=== PATIENT | female | born 1970 | race Caucasian/White ===

== ENCOUNTER 2022-05-27 11:52 | Outpatient (CLI) | payer BC, SELFPAY ==
--- NOTE | 2022-05-27 12:41 | ECG_ITS ---
Measurements Intervals [place] Rate: 57 P: 21 NM: 184 QRS: 1 QRSD: 97 T: 11 QT: 406 QTc: 398 Interpretive Statements SINUS BRADYCARDIA POOR R-WAVE PROGRESSION OTHERWISE NORMAL ECG COMPARED TO ECG 08/13/2018 14:08:18 NO SIGNIFICANT CHANGES Electronically Signed On 05-27-2022 15:32:18 [employer]ER by Tevin Vee M.D.
[2022-05-27 13:00] LABS: Basophils Absolute Auto 0.1 K/mm3 (0.0-0.1); Basophils Percent Auto 0.8 % (0.2-1.2); Eosinophils Absolute Auto 0.4 K/mm3 (0-0.3); Eosinophils Percent Auto 4.8 % (0-4.4); Hematocrit 41.5 % (37.0-47.0); Hemoglobin 13.9 g/dL (12.0-15.0); Immature Granulocyte Absolute 0.02 K/mm3 (0.00-0.031); Immature Granulocyte Percent A 0.3 % (0-0.5); Lymphocytes Absolute Auto 3.02 K/mm3 (0.9-3.2); Lymphocytes Percent Auto 38.1 % (18.3-44.2); Mean Corpuscular HGB Conc 33.5 g/dl (32-36); Mean Corpuscular Hemoglobin 30.8 pg (26-34); Mean Platelet Volume 9.7 fl (7.4-10.4); Monocytes Absolute Auto 0.6 K/mm3 (0.1-0.6); Monocytes Percent Auto 7.8 % (2.6-8.5); Neutrophils Absolute Auto 3.8 K/mm3 (1.3-6.7); Neutrophils Percent Auto 48.2 % (45.5-73.1); Platelet Count Result 316 k/mm3 (150-375); Red Blood Count 4.51 M/mm3 (4.2-5.4); Red Cell Distribution Width 12.5 % (11.5-14.5); White Blood Count 7.9 K/mm3 (4.5-10.0)
[2022-05-27 13:08] LABS: Prothrombin Time 12.9 Seconds (11.1-14.7)
[2022-05-27 13:10] LABS: Partial Thromboplastin Time 30.5 SECONDS (22.3-36.8)
[2022-05-27 13:16] LABS: Alanine Aminotransferase 30 U/L (6-35); Albumin Level 4.7 g/dL (3.5-5.1); Alkaline Phosphatase 58 U/L (38-126); Anion Gap 4 mmol/L (8-16); Aspartate Amino Transferase 32 U/L (14-36); Bilirubin,Total 0.6 mg/dL (0.2-1.3); Blood Urea Nitrogen 12 mg/dL (7-17); Calcium 9.2 mg/dL (8.4-10.2); Carbon Dioxide 31 mmol/L (22-30); Chloride 99 mmol/L (98-107); Estimated Glomerular Filt Rate > 60; Glucose 83 mg/dL (65-110); Potassium 3.5 mmol/L (3.4-5.0); Sodium 134 mmol/L (137-145)
== END 2022-05-27 11:53 | disposition home or self-care (01) ==
LOC: ANHSURGERY 12:01
PROVIDERS: PCP Nurse Practitioner Family; Visit Provider Urology
DX: N81.4 Uterovaginal prolapse, unspecified (principal); I10 Essential (primary) hypertension; Z01.818 Encounter for other preprocedural examination; R00.1 Bradycardia, unspecified
CPT/HCPCS: 36415; 80053; 85025; 85610; 85730; 86850; 86900; 86901; 93005

== ENCOUNTER 2022-06-06 01:47 | Day surgery (SDC) | payer BC, SELFPAY ==
[2022-05-27 12:05] VITALS: BMI 38.3
--- NOTE | 2022-05-27 12:25 | PC.NURSE ---
Report to the Outpatient Waiting Room, entrance under the green pavilion located off [facility], at time ___0600____ on date ___06/06/22____. Planned Procedure Time: __729 . Time changes happen often and if your time is changed the preop area will call you the afternoon before. - You and your visitor will be asked to self-screen and do not enter if you have any COVID symptoms. - Only one visitor is requested with a max of two and NO children visitors are allowed at this time. - The patient visitor may be requested to leave or wait in car when not with patient due to distancing restrictions. - A mask is optional within the hospital at this time. Patients may have clear liquids (water, carbonated beverages, clear teas, apple juice) until 3 hours prior to surgery with a maximum of 20 ounces. - No food from midnight until time of surgery - Infants may have breast milk until 4 hours before surgery, formula 6 hours prior to surgery. - Children will be allowed to drink immediately following surgery. If applicable, please bring a bottle or sippy cup to assist with drinking. Juice, water, soda, and popsicles are readily available. For infants on formula, please bring formula the day of surgery. Pacifiers are allowed. Take the following medications with a SIP of water the morning of surgery: __LEVOTHYROXINE DO NOT STOP ANY OF YOUR OTHER PRESCRIPTION MEDICATIONS PRIOR TO SURGERY ?EXCEPT THE FOLLOWING Medications to discontinue per physician ____TUMS 3 DAYS PRE OP .LAST DOSE 06/02/22 Please no make-up, nail yi, hairspray, perfume, deodorant, or body powder the day of surgery. No jewelry (including any body piercings) or valuables the day of surgery, leave them at home. Please take a shower or bath the night before, or the morning of, surgery with an antibacterial soap. Wear comfortable, loose fitting clothing. Children are encouraged to wear pajamas. - Jewelry must be removed prior to entering the operating room. Rings and piercings that are not removed may be cut off. - The hospital will not accept responsibility for valuables. - Please leave all valuables, including medications, at home the day of surgery. If you are going home after surgery, a licensed customer service driver must drive you home. - NO public transportation without another adult if you receive anesthesia. - We recommend that an adult stay with you for 24 hours following discharge. - We also recommend that you do not drive, make important decision, drink alcoholic beverages, or take any drugs that were not prescribed by your health care provider for at least 24 hours after your discharge time. Follow any additional instructions given to you from your surgeon. If you or anyone in your household have experienced Covid symptoms in the past week, please notify your surgeon or the nurse liaison at the phone number below for possible testing. VERBAL AND WRITTEN instructions given to __PATIENT and asked if any additional questions and then verbalized understanding. Patient advised to call surgeon office or pre surgery nurse liaison [phone] if any additional questions.
[2022-05-27 12:38] VITALS: BP 166/87; PULSE 60; RESP 18; TEMP 37.2; O2SAT 98
--- NOTE | 2022-06-01 07:57 | PM.IMHP ---
H&P: HPI History of Present Illness Date/Time: 06/01/22 07:57 Chief Complaint: uterine prolapse Narrative: is a 51-year-old female with known uterine prolapse. She has had normal Pap and she plans supracervical hysterectomy bilateral salpingectomy with sacral colpopexy robotically by Dr. bosch. Risks and benefits reviewed including but exclusive of , aspiration pneumonia, bleeding, transfusion, perforation injury to bowel, bladder, ureters, or other internal organs with need for open laparotomy. She received the ACOG handout entitled hysterectomy as well as the de Theodore handout she had all questions answered and asked to proceed PMFSH Social History Social History Smoking status: Never smoker Alcohol intake: current Drinks per week: 1 Living arrangements: with family Spiritual care concerns: No Meds Home Medications and Allergies Home Medications Medication Instructions Recorded Confirmed Type calcium carbonate 200 mg calcium 200 mg PO PRN PRN Heartburn 05/27/22 05/27/22 History (500 mg) chewable tablet (Tums) levothyroxine 75 mcg tablet 75 mcg PO DAILY 05/27/22 05/27/22 History lisinopril 20 mg tablet 20 mg PO DAILY 05/27/22 05/27/22 History loratadine 10 mg tablet (Claritin) 10 mg PO HS 05/27/22 05/27/22 History Allergies Allergy/AdvReac Type Severity Reaction Status Date / Time hydrocodone [From Vicodin] AdvReac Itching Verified 05/27/22 12:07 Exam Const: General: cooperative, healthy appearing and comfortable Nutritional Appearance: average body habitus Orientation/consciousness: oriented to person, oriented to place and oriented to time HENMT: Head: normal to inspection Resp: Effort & Inspection: normal respiratory effort Cardio: Rate: regular rate Rhythm: regular rhythm Heart sounds: S1 normal heart sound present and S2 normal heart sound present GI: Inspection: normal to inspection : External Female Exam: normal external appearance Speculum Exam - Vagina: normal appearance of the vagina ( cystocele is noted) Speculum Exam - Cervix: normal appearance of the cervix Bimanual exam- vagina & uterus: uterine size normal ( second-degree prolapse present) Bimanual Exam- Adnexa, other: normal adnexae Assessment and Plan Assessment and plan (1) Uterine prolapse: Code(s): N81.4 - Uterovaginal prolapse, unspecified Status: Acute Plan robotic supracervical hysterectomy bilateral salpingectomy
--- NOTE | 2022-06-03 09:16 | PM.IMHP ---
H&P: HPI History of Present Illness Date/Time: 06/03/22 09:16 Chief Complaint: Stress incontinence, pelvic organ prolapse Narrative: 51-year-old with cystocele, uterine prolapse, stress incontinence. She desires surgical correction Review of Systems Review of Systems: All systems reviewed & are unremarkable except as noted in HPI and below [facility] Social History Social History Smoking status: Never smoker Alcohol intake: current Drinks per week: 1 Living arrangements: with family Spiritual care concerns: No Meds Home Medications and Allergies Home Medications Medication Instructions Recorded Confirmed Type calcium carbonate 200 mg calcium 200 mg PO PRN PRN Heartburn 05/27/22 05/27/22 History (500 mg) chewable tablet (Tums) levothyroxine 75 mcg tablet 75 mcg PO DAILY 05/27/22 05/27/22 History lisinopril 20 mg tablet 20 mg PO DAILY 05/27/22 05/27/22 History loratadine 10 mg tablet (Claritin) 10 mg PO HS 05/27/22 05/27/22 History Allergies Allergy/AdvReac Type Severity Reaction Status Date / Time hydrocodone [From Vicodin] AdvReac Itching Verified 05/27/22 12:07 Exam Narrative: no acute distress normal breathing alert orient x3 urethral mobility new apex +1 Assessment and Plan Assessment and plan (1) Uterine prolapse: Code(s): N81.4 - Uterovaginal prolapse, unspecified Status: Acute (2) JAYSON (stress urinary incontinence, female): Code(s): N39.3 - Stress incontinence (female) (male) Status: Acute Plan plan for robotic colpopexy as well as urethral sling. Risks bleeding, infection, damage surrounding organs, damage to the urinary tract, vaginal mesh extrusion, urinary tract mesh erosion, obstructive voiding requiring secondary procedure, hip and leg pain, dyspareunia, postoperative voiding dysfunction including incontinence and retention, need for ancillary procedures she agrees to proceed
[2022-06-06] VITALS (13 sets, daily range): BP systolic 110–164; BP diastolic 67–85; PULSE 58–99; RESP 10–20; TEMP 36.8–36.9; O2SAT 95–100
[2022-06-06] MEDS: ACETAMINOPHEN 500 MG TABLET 1000 MG PO (06:38)
[2022-06-06] MEDS: KETOROLAC 15 MG/ML VIAL (*BKC) IV PUSH (06:52)
--- NOTE | 2022-06-06 07:05 | WPDHPUPDATE1 ---
History and Physical Update Update Date/Time: 06/06/22 07:05 History and Physical has been reviewed, including an updated exam of the patient. There are NO changes in the patient's condition. Risks, benefits, and alternatives have been discussed and questions answered. Patient agrees to proceed with procedure.
--- NOTE | 2022-06-06 07:14 | WPDHPUPDATE1 ---
History and Physical Update Update Date/Time: 06/06/22 07:14 History and Physical has been reviewed, including an updated exam of the patient. There are NO changes in the patient's condition. Risks, benefits, and alternatives have been discussed and questions answered. Patient agrees to proceed with procedure.
[2022-06-06] MEDS: LACTATED RINGERS 1,000 ML 30 ML IV CONT ×2 (07:32→10:39)
[2022-06-06] MEDS: SCOPOLAMINE 1.5 MG PATCH TRANSDERM (07:32)
[2022-06-06] MEDS: ceFAZolin 2 GM/D5W 50 ML 2 GM/50 ML BAG IVPB (07:39)
[2022-06-06] MEDS: metroNIDAZOLE 500 MG/ISO 100ML 500 MG/100 ML BAG 100 MG IVPB ×2 (07:57→17:00)
[2022-06-06] MEDS: BUPIVACAINE/EPINEPHRINE 0.5% 10 ML VIAL INFILTRATE (08:20)
--- NOTE | 2022-06-06 08:53 | P.OP_ITS ---
Procedure Note - Detailed Date of Procedure 06/06/22 Pre-op Diagnosis uterine prolapse,stress incont Post-op Diagnosis Same Procedure Performed Robotic supracervical hysterectomy and bilateral salpingectomy Surgeon Alec Vance MD Anesthesia General Indications this 42 female who is admitted for robotic supracervical hysterectomy and bilateral salpingectomy as well as robotic sacral colpopexy and sling with Dr. Jacinto. She has uterine prolapse and enlarged irregular uterus. Findings Markedly enlarged uterus with 2nd to 3rd degree prolapse. Normal-appearing tubes and ovaries Description of Procedure patient was prepped draped in the normal sterile fashion placed in dorsal lithotomy position. Under excellent general trach anesthesia weighted speculum placed in posterior fornix vagina. Anterior lip of the cervix grasped with a single-tooth tenaculum. The Cheema's cannula was inserted the cervix attached to the single-tooth. This would be used later for uterine manipulation. A 16 Micronesian catheter was placed in the bladder and the bladder drained of clear urine. The weighted speculum was removed. Dr. Rod process a seated to dock the robot. Please see his operative report for full details. Once this had undertaken I undertook the console. The left round ligament was grasped, burned, cut. Anteriorly bladder flap was formed sharply dissecting the peritoneum reflecting the bladder caudally to the opposite ligament was, burned next the left fallopian tube was skeletonized clamping burning cutting and it from the ovary and left attached to the uterine attachment at its origin. In like fashion the right fallopian tube was skeletonized cut resected away from the ovarian complex left attached to the uterine origin. Next utero-ovarian ligament on left was clamped, burned this conserve left conserving the right ovary, the and utero-ovarian ligament was clamped, burned, brought the level previous round cardinal broad ligaments on left were serially skeletonized clamping burning cutting until the uterine vessels could be seen the left. These were large and tortuous and individually clamped, burned,. In like fashion cardinal broad ligaments on the right were serially skeletonized clamping burning cutting and hugging the cervix and uterus until the uterine vessels could be seen on the right. These were individually clamped, burned, cut. A supracervical incision was made then and the cervix was left as stump. The uterus was cut into 3 pieces and placed in 3 Endo-Catch bags. Blood loss to this point in the surgery was [id number]. All sponge, needle, instrument counts were correct. Dr. thao took over from there patient was in stable condition with no immediate complications and sponge needle counts correct at that point. Estimated Blood Loss 25 Drains No Packing No Pathology Yes Complications No immediate complications Condition Stable Disposition No change
--- NOTE | 2022-06-06 10:39 | W.PM.PROC2 ---
Procedure Note - Detailed Date of Procedure 06/06/22 Pre-op Diagnosis uterine prolapse,stress incontinence Post-op Diagnosis Same Procedure Performed Robotic assisted laparoscopic sacral colpopexy Urethral sling Cystoscopy Surgeon Maximo Rod MD Anesthesia General Indications a woman with uterine prolapse as well as stress incontinence. She desires surgical correction. She is here for the above. She understands risks of bleeding, infection, diskitis, damage to surrounding organs, bowel injury, bowel obstruction, mesh related complications including exposure and extrusion, postoperative voiding dysfunction including incontinence and retention, need for ancillary procedures, dyspareunia, recurrence of prolapse, and other perioperative intraoperative postoperative complications. She agrees to proceed. Findings See below Description of Procedure She was correctly identified. Informed consent obtained. She from the operating room. She was given general anesthesia. She was given appropriate perioperative antibiotics. She was placed a low lithotomy position. Pressure points were padded. A time-out performed. I marked out the skin 3 fingerbreadths cephalad to the umbilicus. I anesthetized the skin. I incised the skin. I dissected down to the fascia. I grasped the fascia with Maria De Jesus clamps. I entered the fascia sharply in a Garcia type technique. I placed sutures for later fascial closure. I placed a midline trocar. I examined the abdomen. There is no sign of any injury. Under direct vision I placed 2 additional trocars in the right upper quadrant and 2 additional trocars the left upper quadrant. She was placed in steep Trendelenburg. The robot was docked. Her physician internist completed their portion of the procedure. Please see that operative report for details. I then sat at the console. The Sizer in the vagina created plane on the anterior and posterior vaginal wall. I took great care not to injure the vagina, bladder, or rectum. I introduced the mesh into the abdomen. I sewed the anterior leaflet of mesh on the anterior vaginal wall. I sewed the posterior leaflet of mesh on the posterior vaginal wall. This was done with several sutures of 2 0 Milano-Nishant. I reflected the colon laterally. I opened the posterior peritoneum over the sacral promontory. I carried this into the cul-de-sac. I freed up the edges for later retroperitonealization. I located the anterior longitudinal ligament the sacrum. I cleaned off all fatty tissues. I then tensioned my mesh appropriately. I did a vaginal exam the bedside. I assured prolapse reduction without undue tension. I then sewed the proximal leaflet of mesh onto the anterior longitudinal ligament of the sacrum with several sutures of 2 0 Milano-Nishant. I then used a 2 0 Monocryl to completely and meticulously retroperitonealized all mesh. I allowed the colon to go back to its normal anatomic location. There is no sign of any impingement. The specimen was then removed. All ports removed. Fascia was tied down. Skin was closed with Monocryl and surgical glue. She was repositioned and prepped for urethral sling. I marked out the inner thigh incisions. I anesthetized the skin and made the incisions. I then anesthetized the anterior vaginal wall at the mid urethra. I made a 1 cm incision. I dissected out laterally taking great care not to injure the refilled vaginal wall. I passed the helical trocars. I did this 1st on the left and then on the right. This was done from the thigh incision towards the vaginal incision. Sling was connected to the trocars and brought out the thigh incision. I tensioned the sling appropriately. I cut and the plastic sheaths. I closed the incision with 2 0 Vicryl. I then performed cystoscopy. There was no tumors or surgical artifact. Both ureters were seen to excrete clear yellow urine. There is no surgical artifact in the bladder or urethra. I cut the excess
[2022-06-06] MEDS: fentaNYL CITRATE INJ (*CRX) 100 MCG/2 ML VIAL 25 MCG IV PUSH ×4 (11:45→12:24)
[2022-06-06] MEDS: ONDANSETRON INJ 4 MG/2 ML VIAL IV PUSH ×3 (12:55→23:40)
[2022-06-06] MEDS: DEXTROSE 5%/0.45% SOD CHL 1,000 ML 125 ML (12:55)
[2022-06-06] MEDS: KETOROLAC 30 MG/ML VIAL (*BKC) IV PUSH ×2 (13:10→20:10)
[2022-06-06] MEDS: SIMETHICONE 80 MG TAB.CHEW PO ×2 (21:10→23:40)
[2022-06-06] MEDS: KCL 20 MEQ/D5/0.45% SOD CHL 1,000 ML 100 ML IV CONT (21:10)
[2022-06-06] MEDS: traMADol HCL (*CRX) 50 MG TABLET PO (23:40)
[2022-06-07] MEDS: metroNIDAZOLE 500 MG/ISO 100ML 500 MG/100 ML BAG 100 MG IVPB (01:30)
[2022-06-07 05:00] VITALS: BP 121/64; PULSE 63; RESP 18; TEMP 36.9; O2SAT 100
[2022-06-07] MEDS: SIMETHICONE 80 MG TAB.CHEW PO ×2 (05:00→08:51)
[2022-06-07] MEDS: traMADol HCL (*CRX) 50 MG TABLET PO ×2 (05:00→10:49)
[2022-06-07] MEDS: LEVOTHYROXINE SODIUM 75 MCG TABLET PO (07:00)
[2022-06-07 07:30] VITALS: BP 125/69; PULSE 65; RESP 16; TEMP 37.2; O2SAT 99
--- NOTE | 2022-06-07 07:45 | PM.DS ---
DS: Admitting Diagnosis Discharge Date 06/08/2022 Admitting Diagnosis uterine prolapse/ cystocele/stress urinary incontinence DS: Discharge Diagnosis Discharge Diagnosis (1) JAYSON (stress urinary incontinence, female): Code(s): N39.3 - Stress incontinence (female) (male) Status: Acute (2) Uterine prolapse: Code(s): N81.4 - Uterovaginal prolapse, unspecified Status: Acute DS: Summary Hospital Course Reason for hospitalization: patient was admitted for definitive therapy for uterine prolapse and stress urinary incontinence Hospital Course: patient underwent robotic total vaginal hysterectomy bilateral salpingectomy as well as cystocele repair and sling. Her hospital course unremarkable. For 24hours stay she remained afebrile. She was up, voiding without difficulty, eating regular diet, ambulating, and general thought complaints. Time Spent with Patient Time attestation: Total time spent providing and/or coordinating discharge services: Exam Const: General: cooperative, healthy appearing, comfortable and overweight Orientation/consciousness: oriented to person, oriented to place and oriented to time HENMT: Head: normal to inspection Resp: Effort & Inspection: normal respiratory effort Cardio: Rate: regular rate Rhythm: regular rhythm Heart sounds: S1 normal heart sound present and S2 normal heart sound present GI: Inspection: normal to inspection and incision ( Wounds are clean dry and intact) DS: Data Data Completed and Pending Pending studies at discharge: Pending at discharge 06/06/22 08:21 Surgical [PTH] Routine Discharge Plan Discharge Patient Disposition: Home, Self-Care Discharge Instructions: No lifting >20lb, exercise for 6 weeks No tub bath or pool for 2 weeks No intercourse 6 weeks Stand Alone Forms: General Discharge Instructions Follow-up/Referrals: Maximo Rod MD [Physician] - (6 weeks) Alec Saucedo MD [Physician] - Discharge Medications: New tramadol 50 mg tablet 50 mg PO Q6H PRN (Reason: pain) Qty: 20 0RF docusate sodium [Colace] 100 mg capsule 100 mg PO BID Qty: 60 0RF Continued lisinopril 20 mg tablet 20 mg PO DAILY levothyroxine 75 mcg tablet 75 mcg PO DAILY loratadine [Claritin] 10 mg Tablet 10 mg PO HS calcium carbonate [Tums] 200 mg calcium (500 mg) Tablet,Chewable 200 mg PO PRN PRN (Reason: Heartburn)
--- NOTE | 2022-06-07 07:47 | PM.GYNPNOP ---
FOLDER MACHINE OPERATOR - A/P Postoperative Procedures: Procedures Operation Date: 06/06/22 07:30 Actual Procedure Side Surgeon p Robotic Sacrocolpopexy, Urethral Sling Maximo Rod MD s Robotic Assisted Supracervical Hysterectomy with Bilateral Salpingectomy Bilateral Alec Vance MD Postoperative day: 1 Postoperative status: doing well Postoperative plan: routine post-op care Time Spent With Patient Time: Total time spent is greater than 50% in coordination of care (as documented) at patient's floor/unit and/or counseling patient: Time with patient: less than 15 minutes FOLDER MACHINE OPERATOR- PN:Subj Post-Op Subjective Date/time seen: 06/07/22 07:47 Subjective: patient reports feeling better and pain is well controlled Exam Const: General: cooperative, healthy appearing and comfortable Nutritional Appearance: overweight Orientation/consciousness: oriented to person, oriented to place and oriented to time HENMT: Head: normal to inspection Resp: Effort & Inspection: normal respiratory effort Cardio: Rate: regular rate Rhythm: regular rhythm Heart sounds: S1 normal heart sound present and S2 normal heart sound present GI: Inspection: normal to inspection and incision ( wounds clean dry and intact) FOLDER MACHINE OPERATOR - PN: Obj Data Vital Signs Vital Signs: Vital Signs - 24 hr 06/06/22 10:45 06/06/22 11:00 06/06/22 11:15 Temperature 98.4 F Pulse Rate 84 72 58 L Respiratory Rate 14 15 13 Blood Pressure 125/70 129/78 115/68 Pulse Oximetry 100 100 100 Oxygen Delivery Simple Face Mask Simple Face Mask Simple Face Mask Oxygen Flow Rate 8 8 8 06/06/22 11:35 06/06/22 11:50 06/06/22 12:05 Temperature Pulse Rate 60 66 67 Respiratory Rate 12 10 L 13 Blood Pressure 118/70 110/71 115/67 Pulse Oximetry 100 95 97 Oxygen Delivery Simple Face Mask Room Air Room Air Oxygen Flow Rate 8 06/06/22 12:20 06/06/22 12:35 06/06/22 12:50 Temperature 98.2 F Pulse Rate 75 82 85 Respiratory Rate 13 14 16 Blood Pressure 110/67 117/71 143/70 H Pulse Oximetry 96 98 96 Oxygen Delivery Room Air Room Air Oxygen Flow Rate 06/06/22 12:50 06/06/22 17:00 06/06/22 17:00 Temperature 98.3 F Pulse Rate 85 99 85 Respiratory Rate 16 20 16 Blood Pressure 158/79 H Pulse Oximetry 96 98 96 Oxygen Delivery Room Air Room Air Oxygen Flow Rate 06/06/22 18:40 06/06/22 18:40 06/06/22 23:40 Temperature 98.3 F Pulse Rate 88 Respiratory Rate 18 Blood Pressure 121/72 Pulse Oximetry 99 Oxygen Delivery Room Air Room Air Oxygen Flow Rate 06/06/22 23:40 06/07/22 05:00 06/07/22 05:00 Temperature 98.5 F 98.4 F Pulse Rate 94 63 Respiratory Rate 18 18 Blood Pressure 142/82 H 121/64 Pulse Oximetry 100 100 Oxygen Delivery Room Air Oxygen Flow Rate Intake/Output Intake/Output: Intake & Output 06/04/22 06/05/22 06/06/22 06/07/22 23:59 23:59 23:59 23:59 Intake Total 2580 750 Output Total 750 1000 Balance 1830 -250 Meds/Results Medications: Active Medications Generic Name Dose Route Start Last Admin Trade Name Freq PRN Reason Stop Dose Admin Acetaminophen 650 mg 06/06/22 12:42 Acetaminophen 325 Mg Tablet PO Q4H PRN Mild Pain (1-3) or Fever Cephalexin HCl 500 mg 06/07/22 13:00 Cephalexin 500 Mg Capsule PO QID MARIA DE JESUS Diphenhydramine HCl 25 mg 06/06/22 12:42 Diphenhydramine Hcl Inj 50 Mg/Ml Vial IV PUSH Q6H PRN Itching Docusate Sodium 100 mg 06/06/22 12:42 06/06/22 19:01 Docusate Sodium 100 Mg Capsule PO Not Given DAILY [facility] Enoxaparin Sodium 30 mg 06/07/22 09:00 Enoxaparin 30 Mg/0.3 Ml Syringe SUB-Q DAILY MARIA DE JESUS Potassium Chloride/Dextrose/Sod Cl 1,000 mls @ 100 mls/hr 06/06/22 12:42 06/06/22 21:10 Kcl 20 Meq/D5/0.45% Sod Chl IV CONT 100 mls/hr .Q10H MARIA DE JESUS Administration Cefazolin Sodium 1 gm in 50 mls @ 100 mls/hr 06/06/22 16:00 06/07/22 03:00 Ancef 1 Gm/D5w 50 Ml Pm IVPB 06/07/22 08:29 Infused Q8H MARIA DE JESUS
--- NOTE | 2022-06-07 07:55 | WPDANESPN ---
Anes - Prog Note Post-Op Date/Time: 06/07/22 07:55 Cardiovascular status: normal Respiratory status: normal Airway patency: baseline Mental status: baseline Post-Op hydration status: normal Vital Signs: Last Vital Signs Temp 98.4 F 06/07/22 05:00 Pulse 63 06/07/22 05:00 Resp 18 06/07/22 05:00 BP 121/64 06/07/22 05:00 Pulse Ox 100 06/07/22 05:00 O2 Del Method Room Air 06/07/22 05:00 O2 Flow Rate 8 06/06/22 11:35 Pain Score (VAS): 0/10 I/O: Intake & Output 06/06/22 06/06/22 06/07/22 15:59 23:59 07:59 Intake Total 1830 750 750 Output Total 750 1000 Balance 1830 0 -250 Post-procedural complaints: none Patient Feedback: Patient satisfied with anesthetic care.
[2022-06-07] MEDS: ACETAMINOPHEN 325 MG TABLET 650 MG PO (08:51)
[2022-06-07] MEDS: DOCUSATE SODIUM 100 MG CAPSULE PO (08:51)
[2022-06-07] MEDS: ENOXAPARIN 30 MG/0.3 ML SYRINGE SUB-Q (10:06)
[2022-06-07] MEDS: CEPHALEXIN 500 MG CAPSULE PO (10:49)
== END 2022-06-07 13:13 | disposition home or self-care (01) ==
LOC: ANHSURGERY 07:30 → ANHOB2 12:47
PROVIDERS: Obstetrics & Gynecology; PCP Nurse Practitioner Family; Visit Provider Urology
PROC: (CPT 57425; principal; 2022-06-06 07:30)
PROC: (CPT 58542; 2022-06-06 07:30)
DX: N81.4 Uterovaginal prolapse, unspecified (principal); N39.3 Stress incontinence (female) (male); N80.00 Endometriosis of the uterus, unspecified; D25.1 Intramural leiomyoma of uterus; D25.2 Subserosal leiomyoma of uterus
CPT/HCPCS: 57288; 57425; 58542; S2900 ×2; 88307; 99199; A9270; C1771; C1781; C9290; J0690; J1100; J1170; J1650; J1885; J2250; J2405; J2704; J2710; J3010; J3480; J7030; J7120

== ENCOUNTER 2022-11-23 14:36 | Outpatient (CLI) | payer BC, SELFPAY ==
[2022-11-23 15:14] LABS: Alanine Aminotransferase 25 U/L (6-35); Albumin Level 4.4 g/dL (3.5-5.1); Alkaline Phosphatase 53 U/L (38-126); Amylase 106 U/L (30-110); Aspartate Amino Transferase 30 U/L (14-36); Bilirubin,Total 0.3 mg/dL (0.2-1.3); Lipase 137 U/L (23-300)
== END 2022-11-23 14:37 | disposition home or self-care (01) ==
LOC: ANHSURGERY 14:40
PROVIDERS: PCP Nurse Practitioner Family; Visit Provider Surgery
DX: K81.1 Chronic cholecystitis (principal)
CPT/HCPCS: 36415; 80076; 82150; 83690; 86850; 86900; 86901

== ENCOUNTER 2022-11-30 00:27 | Day surgery (SDC) | payer BC, SELFPAY ==
[2022-11-22 15:47] VITALS: BMI 35.7
--- NOTE | 2022-11-22 16:06 | PC.NURSE ---
Report to the Outpatient Waiting Room, entrance under the green pavilion located off [facility], at time _0630 on date _11/30/22_. Planned Procedure Time: _0830. Time changes happen often and if your time is changed the preop area will call you the afternoon before. - You and your visitor will be asked to self-screen and do not enter if you have any COVID symptoms. - A mask is optional within the hospital at this time. Patients may have clear liquids (water, carbonated beverages, clear teas, apple juice) until 3 hours prior to surgery with a maximum of 20 ounces. - No food from midnight until time of surgery - Infants may have breast milk until 4 hours before surgery, infant formula 6 hours prior to surgery. - Children will be allowed to drink immediately following surgery. If applicable, please bring a bottle or sippy cup to assist with drinking. Juice, water, soda, and popsicles are readily available. For infants on formula, please bring formula the day of surgery. Pacifiers are allowed. Take the following medications with a SIP of water the morning of surgery: _levothyroxine____ DO NOT STOP ANY OF YOUR OTHER PRESCRIPTION MEDICATIONS PRIOR TO SURGERY ?EXCEPT THE FOLLOWING Medications to discontinue per physician Date to take last dose Please no make-up, nail omani, hairspray, perfume, deodorant, or body powder the day of surgery. No jewelry (including any body piercings) or valuables the day of surgery, leave them at home. Please take a shower or bath the night before, or the morning of, surgery with an antibacterial soap(hibiclens). Wear comfortable, loose fitting clothing. Children are encouraged to wear pajamas. - Jewelry must be removed prior to entering the operating room. Rings and piercings that are not removed may be cut off. - The hospital will not accept responsibility for valuables. - Please leave all valuables, including medications, at home the day of surgery. If you are going home after surgery, a licensed dray driver must drive you home. - NO public transportation without another adult if you receive anesthesia. - We recommend that an adult stay with you for 24 hours following discharge. - We also recommend that you do not drive, make important decision, drink alcoholic beverages, or take any drugs that were not prescribed by your health care provider for at least 24 hours after your discharge time. For Pediatric surgeries, we recommend two adults accompany the child home. Follow any additional instructions given to you from your surgeon. If you or anyone in your household have experienced Covid symptoms in the past week, please notify your surgeon or the nurse liaison at the phone number below for possible testing. Telephone instructions given to Shirin Escalanteand asked if any additional questions and then verbalized understanding. Patient advised to call surgeon office or pre surgery nurse liaison [phone] if any additional questions.
[2022-11-30] VITALS (14 sets, daily range): BP systolic 116–160; BP diastolic 73–100; PULSE 51–75; RESP 12–20; TEMP 36.1–36.8; O2SAT 93–100
[2022-11-30] MEDS: ACETAMINOPHEN 500 MG TABLET 1000 MG PO (07:10)
[2022-11-30] MEDS: LACTATED RINGERS 1,000 ML 30 ML IV CONT ×3 (07:15→12:31)
[2022-11-30] MEDS: KETOROLAC 15 MG/ML VIAL (*BKC) IV PUSH (08:16)
--- NOTE | 2022-11-30 08:25 | WPDHPUPDATE1 ---
History and Physical Update Update Date/Time: 11/30/22 08:25 History and Physical has been reviewed, including an updated exam of the patient. There are NO changes in the patient's condition. Risks, benefits, and alternatives have been discussed and questions answered. Patient agrees to proceed with procedure.
--- NOTE | 2022-11-30 08:34 | P.PNAN_ITS ---
Anes - Initial Pre Proc Eval Procedure: Operation Date: 11/30/22 08:30 Proposed Procedures p Laparoscopic Cholecystectomy - Jhonathan Piedra MD Date/Time: 11/30/22 08:34 Surgeon: Jhonathan Piedra MD Pre Op Diagnosis: Chr Cholecystitis Patient Data Age: 52 Gender: F Height: 1.52 m Weight: 86.8 kg Last Vital Signs Temp 36.8 C 11/30/22 07:27 Pulse 75 11/30/22 07:27 Resp 16 11/30/22 07:27 BP 143/93 H 11/30/22 07:27 Pulse Ox 97 11/30/22 07:27 O2 Del Method Room Air 11/30/22 07:27 Allergies Allergy/AdvReac Type Severity Reaction Status Date / Time hydrocodone [From Vicodin] AdvReac Itching Verified 11/03/22 08:37 Home Medications Medication Instructions Recorded Confirmed Type calcium carbonate 200 mg calcium 200 mg PO PRN PRN Heartburn 05/27/22 11/22/22 History (500 mg) chewable tablet (Tums) levothyroxine 75 mcg tablet 75 mcg PO DAILY 05/27/22 11/22/22 History lisinopril 20 mg tablet 20 mg PO DAILY 05/27/22 11/22/22 History loratadine 10 mg tablet (Claritin) 10 mg PO HS 05/27/22 11/22/22 History Patient hx anesthesia problems: none Family hx anesthesia problems: none Results Review: All pre-operative results and documents have been reviewed as part of the pre- operative evaluation. [facility] Past Medical History Medical History Hypertension Thyroid disorder Surgical History Surgical History H/O lateral meniscus repair of right knee 2006 History of appendectomy 1988 History of bladder suspension procedure 06/06/2022 - Robotic assisted laparoscopic sacral colpopexy, Urethral sling, Cystoscopy History of partial hysterectomy 06/06/2022 - Robotic supracervical hysterectomy and bilateral salpingectomy Family History Family History Father Heart disease Other Hypertension Cancer Heart disease Social History Social History Smoking status: Never smoker Alcohol intake: current Drinks per week: 1 Alcohol use details: Social alcohol use Substance use: never Living arrangements: with family Occupation/Education: occupation 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 Informed Consent: The patient's anesthetic plan and its attendant risks and benefits were discussed with the patient/family/POA. Questions were solicited and answers provided to the satisfaction of the patient/family/POA.
[2022-11-30] MEDS: ceFAZolin 2 GM/D5W 50 ML 2 GM/50 ML BAG IVPB (08:36)
[2022-11-30] MEDS: SCOPOLAMINE 1.5 MG PATCH TRANSDERM (08:38)
--- NOTE | 2022-11-30 08:50 | W.PM.PROC2 ---
Procedure Note - Detailed Date of Procedure 11/30/22 Pre-op Diagnosis Chronic cholecystitis, cholelithiasis Post-op Diagnosis Same Procedure Performed Laparoscopic cholecystectomy Surgeon Jhonathan Piedra MD Client Account Assistant Bneita COOK Anesthesia General and Local (0.5% Marcaine with epinephrine) Indications Patient had been having right upper quadrant pain and epigastric pain that would radiate to her back. She had imaging that showed an echogenic nonmobile lesion in the neck of her gallbladder, possibly an adherent gallstone or a polyp. She is felt to have chronic cholecystitis and is taken to surgery now for laparoscopic cholecystectomy. Findings There were adhesions to the gallbladder. There was mild inflammatory change in the gallbladder. No stones were noted. There were changes of fatty liver. There was no biliary ductal dilatation. Description of Procedure Patient was taken to surgery and induced into general anesthesia. The abdomen was prepped and draped. Trocars were placed in usual fashion using EGEN optical trocars and a 5 mm camera. The gallbladder was decompressed with a laparoscopic aspirator. The cholecystotomy was closed with a Vicryl endoloop. Gallbladder was then elevated and adhesions were taken down with mostly sharp dissection. Cautery was used for hemostasis. The gallbladder was retracted further and he eventually all the adhesions to the gallbladder were taken down. Gallbladder was retracted anterosuperiorly. Due to the fatty liver, we were unable to get full retraction of the gallbladder. A 5 mm port was placed in the left mid abdomen. This was used to retract the medial segment of the left lobe of the liver that was wrapping around the gallbladder. Traction was placed on the infundibulum. Dissection was carried out in the cholecystohepatic triangle. Cystic duct and cystic artery were carefully dissected. Patient had a very large right hepatic artery that was traveling into the liver just below the edge of the gallbladder. We carefully dissected the gallbladder off the liver using the additional retractor to expose the edge of the gallbladder. Eventually at least a 3rd of the gallbladder was dissected off the liver and critical view was achieved. I then securely clipped and divided the cystic duct and cystic artery. The gallbladder was retracted further and was carefully dissected free of its remaining attachments to the liver. Once the gallbladder was freed entirely, it was placed in an Endo-Catch bag and retrieved through the 10 11 epigastric trocar site. We then replaced the epigastric trocar reviewed the right upper quadrant. It was irrigated and suctioned a couple of different times. There was no evidence of bleeding or bile leakage. We then evacuated CO2 and removed the trocar sleeves. Skin wounds were closed with subcuticular 4-0 Monocryl skin suture. The wounds were dressed with Exofin surgical adhesive. The patient was awakened and taken to recovery in good condition. Sponge and needle counts were correct x2. Estimated Blood Loss -10 Drains No Packing No Pathology Yes (Gallbladder) Complications No immediate complications Condition Stable Disposition PACU [facility] Billing Surgery - Charge Forward: Surgery Billing (Laparoscopic cholecystectomy)
[2022-11-30] MEDS: BUPIVACAINE/EPINEPHRINE 0.5% 50 ML VIAL 22 ML INFILTRATE (09:11)
[2022-11-30] MEDS: fentaNYL CITRATE INJ (*CRX) 100 MCG/2 ML VIAL 25 MCG IV PUSH ×4 (10:22→11:21)
[2022-11-30] MEDS: ONDANSETRON INJ 4 MG/2 ML VIAL IV PUSH (11:41)
[2022-11-30] MEDS: diphenhydrAMINE HCl INJ 50 MG/ML VIAL 25 MG IV PUSH (11:54)
[2022-11-30] MEDS: oxyCODONE HCL (*CRX) 5 MG TAB IR PO (12:47)
== END 2022-11-30 14:01 | disposition home or self-care (01) ==
PROVIDERS: PCP Nurse Practitioner Family; Visit Provider Surgery
PROC: 0FT44ZZ Resection of Gallbladder, Percutaneous Endoscopic Approach (ICD-10-PCS; CPT 47562; principal; 2022-11-30 08:30)
DX: K80.10 Calculus of gallbladder with chronic cholecystitis without obstruction (principal); D13.5 Benign neoplasm of extrahepatic bile ducts; K76.0 Fatty (change of) liver, not elsewhere classified; I10 Essential (primary) hypertension; E66.9 Obesity, unspecified; Z68.37 Body mass index [BMI] 37.0-37.9, adult
CPT/HCPCS: 47562; 88304; A9270; C1713; J0330; J0690; J1100; J1170; J1200; J1885; J2250; J2405; J2704; J3010; J7030; J7120

== ENCOUNTER 2022-12-05 10:42 | Emergency (ER) | payer BC, SELFPAY ==
--- NOTE | ~2022-12-05 | XR_ITS ---
EXAMINATION: XR chest 2V DATE: 12/05/2022 11:48 INDICATION: Shortness of breath, cough and wheezing 5 days post cholecystectomy TECHNIQUE: PA and lateral views of the chest were obtained. COMPARISON: None FINDINGS: Mild perihilar and infrahilar bronchial wall thickening without focal airspace opacities. No pleural effusion or pneumothorax. The cardiomediastinal silhouette is normal. Cholecystectomy clips in right upper quadrant. IMPRESSION: 1. Mild perihilar and infrahilar bronchial wall thickening which could be seen with bronchitis, react rahel airway disease/asthma or minimal pulmonary edema. Reviewed, dictated and finalized at location A. IMPRESSION: 1. Mild perihilar and infrahilar bronchial wall thickening which could be seen with bronchitis, reactive airway disease/asthma or minimal pulmonary edema.
--- NOTE | ~2022-12-05 | CT_ITS ---
EXAMINATION: CTA chest PE protocol DATE: 12/05/2022 13:14 INDICATION: Shortness of breath, elevated d-dimer. Recent laparoscopic cholecystectomy 4 days ago. TECHNIQUE: Computed tomography angiography (CTA) of the chest was performed with 100 mL Omnipaque-350 intravenous contrast timed to evaluate the pulmonary arteries. Coronal maximum intensity projection 3D-reconstructions were created by the technologist. Automated exposure control and iterative reconst ruction technique were employed. Exam dose: 632.27 mGy-cm total exam DLP. COMPARISON: 12/05/2022 2 view chest FINDINGS: There is diagnostic contrast enhancement of the pulmonary arteries and no evidence of pulmo nary embolism. No thoracic aortic aneurysm or dissection. No hilar or mediastinal mass lesion or lymphadenopathy. No pericardial or pleural effusion. There is a prominent band of discoid atelectasis or scarring in the right lower lobe and mild discoid atelectasis or scarring at the base of the lingula and left lower lobe. Normal morphology of the adrenal glands. Status post cholecystectomy. No suspicious osteolytic or osteoblastic lesions are noted. Degenerative spurring of the thoracic spi ne. IMPRESSION: No evidence of pulmonary embolism Reviewed, dictated and finalized at Location [facility]. Reviewed, dictated and finalized at location B.
[2022-12-05 10:53] VITALS: BP 191/93; PULSE 71; RESP 18; TEMP 36.7; O2SAT 98
[2022-12-05 11:23] VITALS: O2SAT 99
[2022-12-05 11:30] LABS: Basophils Percent Auto 0.6 % (0.2-1.2); Eosinophils Percent Auto 14.5 % (0-4.4); Hematocrit 40.3 % (37.0-47.0); Hemoglobin 13.2 g/dL (12.0-15.0); Immature Granulocyte Absolute 0.04 K/mm3 (0.00-0.031); Immature Granulocyte Percent A 0.6 % (0-0.5); Lymphocytes Absolute Auto 1.69 K/mm3 (0.9-3.2); Lymphocytes Percent Auto 23.7 % (18.3-44.2); Mean Corpuscular HGB Conc 32.8 g/dl (32-36); Mean Corpuscular Hemoglobin 30.7 pg (26-34); Mean Corpuscular Volume 93.7 fl (80-100); Mean Platelet Volume 9.8 fl (7.4-10.4); Monocytes Absolute Auto 0.5 K/mm3 (0.1-0.6); Monocytes Percent Auto 7.2 % (2.6-8.5); Neutrophils Absolute Auto 3.8 K/mm3 (1.3-6.7); Neutrophils Percent Auto 53.4 % (45.5-73.1); Platelet Count Result 279 k/mm3 (150-375); Red Cell Distribution Width 12.9 % (11.5-14.5); White Blood Count 7.1 K/mm3 (4.5-10.0)
[2022-12-05 11:39] LABS: Alanine Aminotransferase 39 U/L (6-35); Albumin Level 4.3 g/dL (3.5-5.1); Alkaline Phosphatase 54 U/L (38-126); Anion Gap 11 mmol/L (8-16); Aspartate Amino Transferase 29 U/L (14-36); Bilirubin,Total 0.5 mg/dL (0.2-1.3); Blood Urea Nitrogen 9 mg/dL (7-17); Carbon Dioxide 26 mmol/L (22-30); Chloride 103 mmol/L (98-107); Estimated CRCL calculation 96 ml/min; Estimated Glomerular Filt Rate > 60; Glucose 86 mg/dL (65-110); Sodium 140 mmol/L (137-145)
--- NOTE | 2022-12-05 12:21 | ED.URI ---
HPI - URI/Sore Throat General Chief Complaint: Upper Respiratory Infection Stated Complaint: upper respiratory symptoms Time Seen by Provider: 12/05/22 11:50 Source: patient Mode of arrival: ambulatory Limitations: no limitations History of Present Illness HPI Narrative: This is a 52 year old female that presents to the ER for shortness of breath. Reports she has had a cough and been wheezing intermittently over the last couple weeks. She recently underwent a cholecystectomy last week with Dr. Piedra. She has had some shortness of breath today. Called her doctor and was prompted to be seen in the ER. Denies fever, chest pain or lower extremity edema. Related Data Home Medications Medication Instructions Recorded Confirmed calcium carbonate 200 mg calcium 200 mg PO PRN PRN Heartburn 05/27/22 11/22/22 (500 mg) chewable tablet (Tums) levothyroxine 75 mcg tablet 75 mcg PO DAILY 05/27/22 11/22/22 lisinopril 20 mg tablet 20 mg PO DAILY 05/27/22 11/22/22 loratadine 10 mg tablet (Claritin) 10 mg PO HS 05/27/22 11/22/22 Allergies Allergy/AdvReac Type Severity Reaction Status Date / Time hydrocodone [From Vicodin] AdvReac Itching Verified 11/03/22 08:37 Review of Systems Review of Systems: CONSTITUTIONAL: Denies fever ENT: Reports congestion CARDIOVASCULAR: Denies chest pain, or edema. RESPIRATORY: Reports cough and dyspnea. GASTROINTESTINAL: Denies abdominal pain, nausea, vomiting All systems reviewed & are unremarkable except as noted in HPI and below PMFSH Past Medical History Medical History Hypertension Thyroid disorder Surgical History Surgical History H/O lateral meniscus repair of right knee 2006 History of appendectomy 1988 History of bladder suspension procedure 06/06/2022 - Robotic assisted laparoscopic sacral colpopexy, Urethral sling, Cystoscopy History of partial hysterectomy 06/06/2022 - Robotic supracervical hysterectomy and bilateral salpingectomy Family History Family History Father Heart disease Other Hypertension Cancer Heart disease Social History Social History Smoking status: Never smoker Alcohol intake: current Drinks per week: 1 Alcohol use details: Social alcohol use Substance use: never Living arrangements: with family Occupation/Education: occupation 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 HEAD: Normocephalic, atraumatic. EYES: EOMI. ENT: Nares clear, no rhinorrhea or epistaxis. Mucous membranes moist. Oropharynx without tonsillar hypertrophy exudate or other lesions. Bilateral TMs pearly de luna non-bulging NECK: Supple. No adenopathy or masses. CHEST: Clear to auscultation. No respiratory distress. No wheezes rales or rhonchi HEART: Regular rate and rhythm. No murmur heard. Normal peripheral pulses. ABDOMEN: Soft, nontender, nondistended, normal active bowel sounds. Incisions are clean, dry and intact. No abnormal drainage. Mild surrounding bruising EXTREMITIES: Normal range of motion. No edema. SKIN: Warm, dry, no rash. NEURO: No focal deficits. Alert and oriented x3. PSYCH: Normal mood and affect Course Course Emergency Course: Patient was updated on work-up and agrees with plan of care Vital Signs Vital signs: Vital Signs Temperature 98.1 F 12/05/22 10:53 Pulse Rate 71 12/05/22 10:53 Respiratory Rate 18 12/05/22 10:53 Blood Pressure 191/93 H 12/05/22 10:53 Pulse Oximetry 98 12/05/22 10:53 Oxygen Delivery Room Air 12/05/22 10:53 Temperature 98.1 F 12/05/22 10:53 Pulse Rate 59 L 12/05/22 13:48 Respiratory Rate 19 12/05/22 13:48 Blood Press
[2022-12-05 13:48] VITALS: BP 172/85; PULSE 59; RESP 19; O2SAT 99
== END 2022-12-05 14:04 | disposition home or self-care (01) ==
PROVIDERS: Emergency Medicine; Emergency Provider Physician Assistant; PCP Nurse Practitioner Family
DX: J40 Bronchitis, not specified as acute or chronic (principal); I10 Essential (primary) hypertension
CPT/HCPCS: 36415; 71046; 71275; 80053; 85025; 85380; 99284; Q9967

== ENCOUNTER 2025-01-28 14:44 | Outpatient (CLI) | payer OTHER, SELFPAY ==
--- NOTE | ~2025-01-28 | MM_ITS ---
EXAMINATION: screening [facility] BI w kareen INDICATION: Asymptomatic, referred for screening mammogram COMPARISON: None available TECHNIQUE: Digital Breast Tomosynthesis CC, MLO views of Both breasts were obtained with computer-aided detection to assist in interpretation of the study. FINDINGS: There are scattered areas of fibroglandular density. There is a circumscribed mass in the superior medial left breast at anterior to middle third. Circumscribed asymmetry seen on the MLO view in the superior at posterior third in the left breast which may represent an intramammary lymph node. Elsewhere, there are no mammographic features of malignancy. IMPRESSION: 1. Left breast Mass and asymmetry. 2. No evidence of malignancy in the Right breast. RECOMMENDATION: Left breast Diagnostic mammogram with true lateral, appropriate spot compression views and an ultrasound if needed. BI-RADS Category 0: Incomplete: Needs additional imaging evaluation. Reviewed, dictated and finalized at location B. IMPRESSION: 1. Left breast Mass and asymmetry. 2. No evidence of malignancy in the Right breast. RECOMMENDATION: Left breast Diagnostic mammogram with true lateral, appropriate spot compressio n views and an ultrasound if needed. BI-RADS Category 0: Incomplete: Needs additional imaging evaluation.
--- OUTSIDE RECORDS SUMMARY | 2025-01-28 18:42 | XMS_ITS | Clinical Summary ---
Author Organization [facility] Address [address] [place] [address] Care Team Providers Care Technical Architect Name Role Phone Unavailable Primary Care Provider Unavailabl e Source Comments [facility],non-owned Affiliates and Associated Physician Practices is amultiple site organization consisting of ambulatory clinics and hospital sitesin [place], [place], [place] and [place]. This disclosure is being madepursuant to the Care Everywhere program and may not contain all information available regarding this patient. Last updated 17.[employer] [facility] Allergies No known active allergies Medications * Be aware that medications may not be up to date on this document. Alwaysverify current medications with the patient. Medication Sig Dispense Quantity Refills Last Filled Start D ate End Date Status LISINOPRIL PO Active Social History Tobacco Use Types Packs/Day Years Used Date Smoking Tobacco: Never Smokeless Tobacco: Never Comments No Sex and Gender Information Value Date Recorded Sex Assigned at Not on file Legal Sex Female 10:24 PM CDT Gender Identity Not on file Sexual Orientation Not on file Last Filed Vital Signs Vital Sign Reading Time Taken Comments Blood Pressure 130/90 12/04/2018 4:27 PM CDT Pulse 78 12/04/2018 4:27 PM CDT Temperature 36.9 C (98.5 F) 11/26/2016 10:19 AM CDT Respiratory Rate 17 12/04/2018 4:27 PM CDT Oxygen Saturation 99% 12/04/2018 4:27 PM CDT Inhaled Oxygen Concentration - - Weight 81.6 kg (180 lb) 12/04/2018 4:27 PM CDT Height 154.9 cm (5' 1) 12/04/2018 4:27 PM CDT Body Mass Index 34.01 12/04/2018 4:27 PM CDT Plan of Treatment Health Maintenance Due Date Last Done Comments COLOGUARD (AGES 45-75) - COL ON CA SCREENING 1972 COLON MONITORING 1972 COLONOSCOPY - COLON CA SCREENING 1972 CT COLONOGRAPHY - COLON CA SCREENING 1972 Colorectal Cancer Screening 1972 FIT - COLON CA SCREENING 1972 FLEX SIG - COLON CA SCREENING 1972 LIPID TESTING 1972 MAMMOGRAM 1972 HIV SCREENING 06/18/1987 HEPATITIS C SCREENING 06/13/1990 DTAP/TDAP/TD VACCINES (1 - Tdap) 06/18/1991 HEPATITIS B VACCINE (1 of 3 - 19+ 3-dose series) 06/18/1991 PAP SMEAR 1993 SCREENING FOR DIABETES 12/04/2018 PNEUMOCOCCAL VACCINE 50+ (1 of 1 - PCV) 2022 ZOSTER VACCINE (1 of 2) 2022 DEPRESSION SCREENING 04/10/2024 COVID-19 VACCINE (1 - 2023-2 5 season) 2024 INFLUENZA VACCINE (#1) 2024 HIB VACCINE Aged Out No longer eligi ble based on patient's age to complete this topic HPV VACCINE Aged Out No longer eligi ble based on patient's age to complete this topic MENINGOCOCCAL (Group B) VACC INE SHARED DECISION-MAKING Aged Out No longer eligibl e based on patient's age to complete this topic MENINGOCOCCAL GROUPS A/C/Y/W VACCINE Aged Out No longer eligible b ased on patient's age to complete this topic Insurance [employer]
--- OUTSIDE RECORDS SUMMARY | 2025-01-28 18:42 | XMS_ITS | Clinical Summary ---
Author Organization [facility] Address [address] [place] [id number] Care Team Providers Care Suction Plate Roller Hand Name Role Phone Mona Vaughn NP Primary Care Provider [phone] Allergies No known active allergies Medications lisinopril, bulk, 100 % powder Take by mouth Active levothyroxine (SYNTHROID) 175 mcg tablet Take 175 mcg by mouth medicine assistant before breakfast Active cetirizine (ZyrTEC) 10 mg chewable tablet Take 10 mg by mouth daily Active Active Problems Problem Noted Date Diagnosed Date Abnormal mammography 08/24/2020 Surgical History Surgery Date Site/Laterality Comments BREAST BIOPSY 09/03/2020 Right Medical History Medical History Date Comments Thyroid disease Family History Medical History Relation Name Comments Lung cancer Maternal Grandmother Relation Name Status Comments Maternal Grandmother Social History Tobacco Use Types Packs/Day Years Used Date Smoking Tobacco: Never Personal Safety Answer Date Recorded Getting School Help Needed Not on file 06/24 Comments Unknown Sex and Gender Information Value Date Recorded Sex Assigned at Not on file Legal Sex Female 9:53 AM CDT Gender Identity Not on file Sexual Orientation Not on file Obstetrics History Last Filed Vital Signs Vital Sign Reading Time Taken Comments Blood Pressure - - Pulse - - Temperature - - Respiratory Rate - - Oxygen Saturation - - Inhaled Oxygen Concentration - - Weight 86.2 kg (190 lb) 08/24/2020 8:24 AM CDT Height 154.9 cm (5' 1) 08/24/2020 8:24 AM CDT Body Mass Index 35.9 08/24/2020 8:24 AM CDT Plan of Treatment Not on file Insurance [employer] Care Teams Suction Plate Roller Hand Relationship Specialty Start Date End Date Mona Vaughn NP PCP - General Nurse Practitioner 08/11/20
--- OUTSIDE RECORDS SUMMARY | 2025-01-28 18:42 | XMS_ITS | Data Portability ---
Author Organization [facility] Address [address] [place] [address] Care Team Providers Care Community Service Technician Name Role Phone CRUZSABINADAHLIA Primary Care Provider Unavailab STALIN Robledo Research Leader Assessment Encounter Date Assessment Date Assessment LastModified by Organization Details LastModified Time 09/07/2023 09/07/2023 Mammogram: August 2022 Pap smear smear: july 2022 cologuard : october 2022. negative. Eye exam: been a few years Dental : every 6 months. Not available 09/07/2023 15:13:22 10/04/2023 10/04/2023 Patient is still to complete labs that were ordered at her 1st visit in August. Not available 10/15/2023 13:24:12 04/26/2024 04/26/2024 Patient is still to complete labs that were ordered at her 1st visit in August. Mammogram: August 2022 Pap smear smear: july 2022 cologuard : october 2022. negative. Eye exam: been a few years, still to do Dental : every 6 months. Not available 04/26/2024 11:33:07 09/06/2024 09/06/2024 cologuard negative. eye exam Due dental UTD labs UTD pap smear due. mammogram this fall. She is to bring old disc images to [facility] so they can compare to the [facility] mammograms Not available 09/06/2024 11:30:06 Plan of Treatment Reminders Order Date Submit Date Provider Last Modified By Organization Details Last Modified Time Details Appointments ANY 15 2024 08:00A M MARC Gallegos Not available Not available Not available Lab TSH + free T4, serum 2024 025 [email or web address], [address], [place], [address], 09/06/2024 11:23:16 vitamin B12, serum 2024 025 [facility], [address], [place], [address], 09/06/2024 11:23:16 lipid panel, serum 2024 025 ROGELIO William, [address], [place], [address], 09/05/2024 09:08:19 CBC w/ auto diff 2024 025 ROGELIO William, [address], [address], [place], [address], 09/05/2024 09:08:26 CMP, serum or plasma 2024 025 ROGELIO William, [address], [place], [address], 09/05/2024 09:08:22 vitamin B12 + folate, serum or blood 2024 025 ROGELIO William, [address], [address], [place], [address], 09/05/2024 09:08:24 TSH + free T4, serum 2024 025 ROGELIO William, [address], [place], [address], 09/05/2024 09:08:20 HbA1c (hemoglob in A1c), blood 2024 025 ROGELIO William, [address], [address], [place], [address], 09/05/2024 09:08:25 lipid panel, serum 2023 024 [email or web address], [address], [address], [place], [address], 01/18/2024 14:15:38 CBC w/ auto diff 2023 024 [email or web address], [address], [place], [address], 01/18/2024 14:15:30 CMP, serum or plasma 2023 024 [email or web address], [address], [place], [address], 01/18/2024 14:15:26 vitamin B12 + folate, serum or blood 2023 024 [email or web address], [address], [place], [address], 01/18/2024 14:15:21 TSH + free T4, serum 2023 024 [email or web address], [address], [place], [address], 01/18/2024 14:15:17 HbA1c (hemoglob in A1c), blood 2023 024 [email or web address], [address], [address], [place], [address], 01/18/2024 14:15:34 Referral None recorded. Procedures None recorded. Surgeries None recorded. Imaging MAMMO, screening , digital, bilateral 2024 025 [email or web address] [facility] (Imaging), [address] [place], [address], 01/27/2025 12:00:16 MAMMO, screening , digital, bilateral [address] ([facility]), [address], [place], [address], 02/06/2024 10:32:05 Medication Orders hydrochlo rothiazid e 12.5 mg tablet 2024 025 [facility] #[id number], [address], [place], [address], 09/06/2024 11:23:18 levothyro xine 88 mcg tablet 2024 025 [facility] #[id number], [address], [place], [address], 09/06/2024 11:23:18 valsartan 320 mg tablet 2023 024 [email or web address] [facility]acy #[id number], [address], [place], [address], 04/26/2024 10:55:36 lisinopri l 40 mg tablet 2023 024 [facility]acy #[id number], [address], [place], [address], 10/04/2023 17:03:39 levothyro xine 75 mcg tablet 2023 024 [email or web address] [facility] #[id number], [address], [place], [address], 04/26/2024 10:55:31 Patient TargetsNo targets recorded. Patient Instructions Encounter Date Encounter Id Patient Instructions Last Modified By Organization Details Last Modified Time 09/07/2023 [id number] A healthy lifestyle: care instructions Not available 09/07/2023 21:20:42 04/26/2024 [id number] A healthy lifestyle: care instructions Not available 04/26/2024 11:30:38 Reason for Referral None Reported. Results Created Date Observation Date Name Description Value Unit Range Abnormal Flag Note LastModifiedBy Organization Detail LastModifiedTime 08/28/1908/28/2024 LIPID PANEL W/ CHOL/ HDL RATIO cholesterol, total 204 mg/dL 100-19 9 above high normal Not Available [facility] ([facility]) [address] [place], [address], 09/05/2024 09:08:18 08/28/19 25 08/28/2024 LIPID PANEL W/ CHOL/ HDL RATIO triglyceride s 121 mg/dL 0-149 Not Available [facility] ([facility]) [address] [place], [address], 09/05/2024 09:08:18 08/28/19 25 08/28/2024 LIPID PANEL W/ CHOL/ HDL RATIO HDL cholesterol 55 mg/dL >39 Not Available [facility] ([facility]) [address] [place], [address], 09/05/2024 09:08:18 08/28/19 25 08/28/2024 LIPID PANEL W/ CHOL/ HDL RATIO VLDL cholesterol jhonatan 22 mg/dL 5-40 Not Available [facility] ([facility]) [address] [place], [address], 09/05/2024 09:08:18 08/28/19 25 08/28/2024 LIPID PANEL W/ CHOL/ HDL RATIO LDL chol calc ([facility]) 127 mg/dL 0-99 above high normal Not Available [facility] ([facility]) [address] [place], [address], 09/05/2024 09:08:18 08/28/19 25 08/28/2024 LIPID PANEL W/ CHOL/ HDL RATIO T. chol/HDL ratio 3.7 ratio 0.0-4. 4 T. Chol/ HDL Ratio Men Women 1/2 Avg.R isk 3.4 3.3 Avg.R isk 5.0 4.4 2X Avg.R isk 9.6 7.1 3X Avg.R isk 23.4 11.0 Not Available [facility] ([facility]) [address] [facility] [place], [address], 09/05/2024 09:08:18 08/28/19 25 08/28/2024 TSH+F REE T4 TSH 3.770 uIU/m L 0.450- 4.500 Not Available [facility] ([facility]) [address] [facility] [place], [address], 09/05/2024 09:08:20 08/28/19 25 08/28/2024 TSH+F REE T4 T4,free(dire ct) 1.27 NG/dL 0.82-1 .77 Not Available [facility] ([facility]) [address] [facility] [place], [address], 09/05/2024 09:08:20 08/28/19 25 08/28/2024 COMP. METAB OLIC PANEL (14) glucose 81 mg/dL 70-99 Not Available [facility] ([facility]) [address] [facility] [place], [address], 09/05/2024 09:08:22 08/28/19 25 08/28/2024 COMP. METAB OLIC PANEL (14) BUN 11 mg/dL 6-24 Not Available [facility] ([facility]) [address] [place], [address], 09/05/2024 09:08:22 08/28/19 25 08/28/2024 COMP. METAB OLIC PANEL (14) creatinine 0.72 mg/dL 0.57-1 .00 Not Available [facility] ([facility]) [address] [place], [address], 09/05/2024 09:08:22 08/28/19 25 08/28/2024 COMP. METAB OLIC PANEL (14) eGFR 101 mL/mi n/1.7 3 >59 Not Available [facility] ([facility]) [address] [facility], [place], [address], 09/05/2024 09:08:22 08/28/19 25 08/28/2024 COMP. METAB OLIC PANEL (14) BUN/creatini ne ratio 15 9-23 Not Available [facility] ([facility]) [address] [facility], [place], [address], 09/05/2024 09:08:22 08/28/19 25 08/28/2024 COMP. METAB OLIC PANEL (14) sodium 138 mmol/ L 134-14 4 Not Available [facility] ([facility]) [address] [facility] [place], [address], 09/05/2024 09:08:22 08/28/19 25 08/28/2024 COMP. METAB OLIC PANEL (14) potassium 3.6 mmol/ L 3.5-5. 2 Not Available [facility] ([facility]) [address] [facility], [place], [address], 09/05/2024 09:08:22 08/28/19 25 08/28/2024 COMP. METAB OLIC PANEL (14) chloride 101 mmol/ L 96-106 Not Available [facility] ([facility]) [address] [facility] [place], [address], 09/05/2024 09:08:22 08/28/19 25 08/28/2024 COMP. METAB OLIC PANEL (14) carbon dioxide, total 24 mmol/ L Not Available [facility] ([facility]) [address] [facility] [place], [address], 09/05/2024 09:08:22 08/28/19 25 08/28/2024 COMP. METAB OLIC PANEL (14) calcium 9.4 mg/dL 8.7-10 .2 Not Available [facility] ([facility]) [address] [facility] [place], [address], 09/05/2024 09:08:22 08/28/19 25 08/28/2024 COMP. METAB OLIC PANEL (14) protein, total 6.8 g/dL 6.0-8. 5 Not Available [facility] ([facility]) [address] [facility] [place], [address], 09/05/2024 09:08:22 08/28/19 25 08/28/2024 COMP. METAB OLIC PANEL (14) albumin 4.3 g/dL 3.8-4. 9 Not Available [facility] ([facility]) [address] [facility] [place], [address], 09/05/2024 09:08:22 08/28/19 25 08/28/2024 COMP. METAB OLIC PANEL (14) globulin, total 2.5 g/dL 1.5-4. 5 Not Available [facility] ([facility]) [address] [facility] [place], [address], 09/05/2024 09:08:22 08/28/19 25 08/28/2024 COMP. METAB OLIC PANEL (14) bilirubin, total 0.4 mg/dL 0.0-1. 2 Not Available [facility] ([facility]) [address] [facility] [place], [address], 09/05/2024 09:08:22 08/28/19 25 08/28/2024 COMP. METAB OLIC PANEL (14) alkaline phosphatase 58 IU/L 44-121 Not Available [facility] ([facility]) [address] [facility] [place], [address], 09/05/2024 09:08:22 08/28/19 25 08/28/2024 COMP. METAB OLIC PANEL (14) AST (SGOT) 25 IU/L 0-40 Not Available [facility] ([facility]) [address] [facility] [place], [address], 09/05/2024 09:08:22 05/20/08/28/2024 COMP. METAB OLIC PANEL (14) ALT (SGPT) 24 IU/L 0-32 Not Available [facility] ([facility]) [address] [place], [address], 09/05/2024 09:08:22 08/28/19 25 08/29/2024 HOMOC Y+MET HYL homocyst(E)i ne 12.7 umol/ L 0.0-14 .5 Not Available [facility] ([facility]) [address] [place], [address], 09/05/2024 09:08:23 08/28/19 25 09/05/2024 HOMOC Y+MET HYL methylmaloni c acid, serum 636 nmol/ L 0-378 above high normal Not Available [facility] ([facility]) [address] [place], [address], 09/05/2024 09:08:23 08/28/19 25 08/28/2024 VITAM IN B12+F OLATE vitamin B12 227 pg/mL 232-12 45 below low normal Not Available [facility] ([facility]) [address] [place], [address], 09/05/2024 09:08:23 08/28/19 25 08/28/2024 VITAM IN B12+F OLATE folate (folic acid), serum 10.5 NG/mL >3.0 A serum folat e kassidy ntrat ion of less than 3.1 ng/mL is consi dered to repre sent clini jhonatan defic iency . Not Available [facility] ([facility]) [address] [place], [address], 09/05/2024 09:08:23 08/28/19 25 08/28/2024 HEMOG LOBIN A1C hemoglobin A1C 5.7 % 4.8-5. 6 above high normal Predi abete s: 5.7 - 6.4 Diabe bola: >6.4 Glyce pietro contr ol for adult s with diabe bola: <7.0 Not Available [facility] ([facility]) [address] [place], [address], 09/05/2024 09:08:25 08/28/19 25 08/28/2024 CBC WITH DIFFE RENTI AL/PL ATELE T WBC 5.9 x10e3 /uL 3.4-10 .8 Not Available [facility] ([facility]) [address] [facility], [place], [address], 09/05/2024 09:08:26 08/28/19 25 08/28/2024 CBC WITH DIFFE RENTI AL/PL ATELE T RBC 4.48 x10e6 /uL 3.77-5 .28 Not Available [facility] ([facility]) [address] [facility], [place], [address], 09/05/2024 09:08:26 08/28/19 25 08/28/2024 CBC WITH DIFFE RENTI AL/PL ATELE T hemoglobin 13.4 g/dL 11.1-1 5.9 Not Available [facility] ([facility]) [address] [place], [address], 09/05/2024 09:08:26 08/28/19 25 08/28/2024 CBC WITH DIFFE RENTI AL/PL ATELE T hematocrit 41.6 % 34.0-4 6.6 Not Available [facility] ([facility]) [address] [place], [address], 09/05/2024 09:08:26 08/28/19 25 08/28/2024 CBC WITH DIFFE RENTI AL/PL ATELE T MCV 93 fL 79-97 Not Available [facility] ([facility]) [address] [place], [address], 09/05/2024 09:08:26 08/28/19 25 08/28/2024 CBC WITH DIFFE RENTI AL/PL ATELE T MCH 29.9 pg 26.6-3 3.0 Not Available [facility] ([facility]) [address] [facility], [place], [address], 09/05/2024 09:08:26 08/28/19 25 08/28/2024 CBC WITH DIFFE RENTI AL/PL ATELE T MCHC 32.2 g/dL 31.5-3 5.7 Not Available [facility] ([facility]) [address] [facility], [place], [address], 09/05/2024 09:08:26 08/28/19 25 08/28/2024 CBC WITH DIFFE RENTI AL/PL ATELE T RDW 12.6 % 11.7-1 5.4 Not Available [facility] ([facility]) [address] [facility], [place], [address], 09/05/2024 09:08:26 08/28/19 25 08/28/2024 CBC WITH DIFFE RENTI AL/PL ATELE T platelets 325 x10e3 /uL 150-45 0 Not Available [facility] ([facility]) [address] [facility], [place], [address], 09/05/2024 09:08:26 08/28/19 25 08/28/2024 CBC WITH DIFFE RENTI AL/PL ATELE T neutrophils 39 % notest ab. Not Available [facility] ([facility]) [address] [facility], [place], [address], 09/05/2024 09:08:26 08/28/19 25 08/28/2024 CBC WITH DIFFE RENTI AL/PL ATELE T lymphs 44 % notest ab. Not Available [facility] ([facility]) [address] [facility], [place], [address], 09/05/2024 09:08:26 08/28/19 25 08/28/2024 CBC WITH DIFFE RENTI AL/PL ATELE T monocytes 10 % notest ab. Not Available [facility] ([facility]) [address] [place], [address], 09/05/2024 09:08:26 08/28/19 25 08/28/2024 CBC WITH DIFFE RENTI AL/PL ATELE T eos 6 % notest ab. Not Available [facility] ([facility]) [address] [facility], [place], [address], 09/05/2024 09:08:26 08/28/19 25 08/28/2024 CBC WITH DIFFE RENTI AL/PL ATELE T basos 1 % notest ab. Not Available [facility] ([facility]) [address] [facility], [place], [address], 09/05/2024 09:08:26 08/28/19 25 08/28/2024 CBC WITH DIFFE RENTI AL/PL ATELE T neutrophils (absolute) 2.3 x10e3 /uL 1.4-7. 0 Not Available [facility] ([facility]) [address] [place], [address], 09/05/2024 09:08:26 08/28/19 25 08/28/2024 CBC WITH DIFFE RENTI AL/PL ATELE T lymphs (absolute) 2.6 x10e3 /uL 0.7-3. 1 Not Available [facility] ([facility]) [address] [place], [address], 09/05/2024 09:08:26 08/28/19 25 08/28/2024 CBC WITH DIFFE RENTI AL/PL ATELE T monocytes(ab solute) 0.6 x10e3 /uL 0.1-0. 9 Not Available [facility] ([facility]) [address] [place], [address], 09/05/2024 09:08:26 08/28/19 25 08/28/2024 CBC WITH DIFFE RENTI AL/PL ATELE T eos (absolute) 0.3 x10e3 /uL 0.0-0. 4 Not Available [facility] ([facility]) [address] [facility], [place], [address], 09/05/2024 09:08:26 08/28/19 25 08/28/2024 CBC WITH DIFFE RENTI AL/PL ATELE T baso (absolute) 0.0 x10e3 /uL 0.0-0. 2 Not Available [facility] ([facility]) [address] [facility], [place], [address], 09/05/2024 09:08:26 08/28/19 25 08/28/2024 CBC WITH DIFFE RENTI AL/PL ATELE T immature granulocytes 0 % notest ab. Not Available [facility] ([facility]) [address] [facility], [place], [address], 09/05/2024 09:08:26 08/28/19 25 08/28/2024 CBC WITH DIFFE RENTI AL/PL ATELE T immature grans (abs) 0.0 x10e3 /uL 0.0-0. 1 Not Available [facility] ([facility]) [address] [facility], [place], [address], 09/05/2024 09:08:26 Result Notes None recorded. Problems Name Problem SNOMED Code Status Onset Date Resolution Date Notes Provider Name and Address Organization Details Recorded Time Benign essential hypertension 5139524 Active 2023 MARC Gallegos Attn: Stephen chaves,[address] [facility], [place], [address], [facility] 4 21:20:06 Hypothyroidism 05143367 Active 2023 MARC Gallegos Attn: Stephen chaves,[address] [facility], [place], [address], [facility] 4 21:20:07 Long-term drug therapy Active 2023 MARC Gallegos Attn: Stephen chaves,[address] [facility], [place], [address], [place] [facility] 4 21:20:09 Body mass index 30+ - obesity 698776351 Active 2023 MARC Gallegos Attn: Stephen chaves,[address] [facility], [place], [address], [place] [facility] 4 21:20:37 Obesity 115383894 Active 2023 MARC Gallegos Attn: Stephen chaves,[address] [facility], [place], [address], [place] [facility] 4 21:20:41 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 Medical Equipment None Reported. Allergies Allergen ID Allergen Name Allergen Category Reaction Reaction Severity Criticality Documentation Date Start Date Code Code System Note Provider Name and Address Organization Details Recorded Time 775286 acetamino phen / hydrocodo ne medicatio n Not available Not available Not available 09/07/2023 47049 2 RxNorm Dk Meléndez MA null, [place] [facility] 4 14:36:48 235616 Product containin g angiotens in-conver ting enzyme inhibitor (product) medicatio n cough Not available Not available 10/04/2023 18281 009 SNOMED MARC Gallegos Attn: Stephen chaves,[address] [place], [address], [place] [facility] 4 17:04:32 Medications Name Sig Start Date Stop Date Status Note LastModified by Organization Details LastModified Time azithromy mary 250 mg tablet TAKE 2 TABLETS BY MOUTH TODAY, THEN TAKE 1 TABLET DAILY FOR 4 DAYS DIRECTED 09/06 completed Not Available Not Available Not Available lisinopri l 20 mg tablet TAKE 1 TABLET BY MOUTH EVERY DAY 09/06 completed Not Available Not Available Not Available levothyro xine 75 mcg tablet TAKE 1 TABLET BY MOUTH EVERY DAY active Not Available Not Available No t Available oxycodone -acetamin ophen 5 mg-325 mg tablet 0.5 - 1 TABLET ORALLY EVERY 6 HOURS NEEDED FOR PAIN 09/06 completed Not Available Not Available Not Available levothyro xine 88 mcg tablet TAKE 1 TABLET BY MOUTH EVERY DAY active Not Available Not Available No t Available valsartan 320 mg tablet TAKE 1 TABLET BY MOUTH EVERY DAY 2024 active Not Available Not Available Not Avai lable ibuprofen 600 mg tablet 600 MG ORALLY EVERY 6 HOURS NEEDED FOR PAIN active prn Not Available Not Available No t Available methylpre dnisolone 4 mg tablets in a dose pack TAKE 1 DOSE PACK BY MOUTH DIRECTED 09/06 completed Not Available Not Available Not Available albuterol sulfate HFA 90 mcg/actua tion aerosol inhaler INHALE 2 PUFFS 4 TIMES A DAY NEEDED FOR SHORTNES S OF BREATH OR FOR WHEEZE active prn- needs it refilled for Not Available Not Available Not Available lisinopri l 40 mg tablet TAKE 1 TABLET BY MOUTH EVERY DAY 10/03 completed Not Available Not Available Not Available hydrochlo rothiazid e 12.5 mg tablet TAKE 1 TABLET BY MOUTH EVERY DAY active Not Available Not Available No t Available Vitals Date Recorded Respiratory rate Systolic And Diastolic Provider Name and Address Organization Details Last Updated DateTime 04/26/2024 16 /min 160/90 mm[Hg] MARC Gallegos Attn: Accounting,[address] [place], [address], [facility] 04/26/2024 11:32:30 Date Recorded Body height Body mass index (BMI) Body weight Oxygen saturation Oxygen saturation in Arterial blood by Pulse oximetry Heart rate Systolic And Diastolic Provider Name and Address Organization Details Last Updated DateTime 152.4 cm 39.1 kg/m2 55303.4 7 g 98 % 98 % 80 /min 168/82 mm[Hg] Dk Meléndez MA [facility] 5 10:58:24 Date Recorded Systolic And Diastolic Systolic And Diastolic Provider Name and Address Organization Details Last Updated DateTime 09/07/2023 180/100 mm[Hg] 170/100 mm[Hg] MARC Gallegos Attn: Accounting,[address] [place], [address], [facility] 09/07/2023 15:34:45 Date Recorded Body weight Body mass index (BMI) Body height Respiratory rate Oxygen saturation Oxygen saturation in Arterial blood by Pulse oximetry Heart rate Systolic And Diastolic Provider Name and Address Organization Details Last Updated DateTime 4 71836.5 1 g 38.1 kg/m2 152.4 cm 20 /min 98 % 98 % 74 /min 142/98 mm[Hg] Dk Meléndez MA [facility] 4 14:41:10 Date Recorded Systolic And Diastolic Systolic And Diastolic Provider Name and Address Organization Details Last Updated DateTime 09/06/2024 160/90 mm[Hg] 160/90 mm[Hg] MARC Gallegos Attn: Accounting,[address] [place], [address], [facility] 09/06/2024 11:19:38 Date Recorded Body height Body mass index (BMI) Body weight Oxygen saturation Oxygen saturation in Arterial blood by Pulse oximetry Heart rate Respiratory rate Systolic And Diastolic Provider Name and Address Organization Details Last Updated DateTime 152.4 cm 38.1 kg/m2 28221.5 1 g 99 % 99 % 73 /min 18 /min 150/90 mm[Hg] Dk Meléndez MA [facility] 5 10:59:02 Date Recorded Systolic And Diastolic Provider Name and Address Organization Details Last Updated DateTime 10/04/2023 170/80 mm[Hg] MARC Gallegos Attn: Accounting,[address] [place], [address], [facility] 10/04/2023 17:02:12 Date Recorded Body height Body mass index (BMI) Body weight Respiratory rate Oxygen saturation Oxygen saturation in Arterial blood by Pulse oximetry Heart rate Systolic And Diastolic Systolic And Diastolic Provider Name and Address Organization Details Last Updated DateTime 4 152.4 cm 38.5 kg/m2 50916.7 g 20 /min 98 % 98 % 65 /min 146/88 mm[Hg] 160/98 mm[Hg] Dk Meléndez MA [facility] 16:43:55 Social History Question Answer Notes LastModified by Organizat ion Details LastModified Time Tobacco Smoking Status Never Smoker Dk Meléndez MA null, [facility] 09/07/2023 14:38:36 Do You Have An Advance Directive? No Information not available 09/07/2023 Are You Blind Or Do You Have Difficulty Seeing? No Glasses/r eading Information not available 09/07/2023 What Is Your Level Of Caffeine Consumption? Occasional Information not available 09/07/2023 In The 14 Days Before Symptom Onset, Have You Had Close Contact With A Laboratory-confir med COVID-19 While That Case Was Ill? No Information not available 09/06/2023 In The 14 Days Before Symptom Onset, Have You Had Close Contact With A Person Who Is Under Investigation For COVID-19 While That Person Was Ill? No Information not available 09/06/2023 Have You Been To An Area Known To Be High Risk For COVID-19? No Information not available 09/06/2023 Are You Deaf Or Do You Have Serious Difficulty Hearing? No Information not available 09/07/2023 What Type Of Diet Are You Following? REGULAR Information not available 09/07/2023 Are There Any Guns Present In Your Home? No Information not available 09/07/2023 What Was The Date Of Your Most Recent Tobacco Screening? 09/06/2024 Information not available 09/06/2024 Do You Use Your Seat Belt Or Car Seat Routinely? Yes Information not available 09/06/2023 Do You Have Smoke And Carbon Monoxide Detectors In Your Home? Yes Information not available 09/06/2023 Do You Use Sunscreen Routinely? Yes Information not available 09/07/2023 Has Tobacco Cessation Counseling Been Provided? Yes Information not available 09/06/2023 On What Date Was Tobacco Cessation Counseling Provided? 09/06/2024 Information not available 09/06/2024 Sex: Female Functional Status Question Answer Note LastModified by Organizat ion Details LastModified Time Do you use any illicit or recreational drugs? No Information not available 09/07/2023 Do you or have you ever used any other forms of tobacco or nicotine? No Information not available 09/07/2023 What is your level of alcohol consumption? Occasional Information not available 09/07/2023 Are you able to care for yourself independently? Yes Information not available 09/06/2023 What is your exercise level? Moderate Information not available 09/07/2023 Mental Status None recorded. Family History Nothing Reported. Medical History No medical history recorded. Gynecological History Statement/Question Response Menses Monthly N Current Control Method Other Obstetrics History GPAL:G 2 P 2 0 0 3 Type Value Full Term 2 Induced 0 Spontaneous 0 Premature 0 Living 3 Total 2 Immunizations Vaccine Type Date Status Note Provider Nam e and Address Organization Details Recorded Time influenza, unspecified formulation 01/15/[address] [facility] 01/17/2024 15:10:16 Past Encounters Encounter ID Performer Location Encounter Start Date Encounter Closed Date Diagnosis/Indication Diagnosis SNOMED-CT Code Diagnosis ICD10 Code Diagnosis IMO Codes Diagnosis Note [id number] Tevin Dalal MD [facility] [address] [place] [address] 09/07/2023 14:18:14 09/07/2023 16:37:47 Adult health examination 146974036 Z00.01 New pt wellness completed. Benign ess ential hypertension 2622415 I10 High BP today. Boost to Lisinopril 40mg daily. f/u planned for october 03. check home BP's and log. Hypothyroidism 16719873 E03.9 pt is to start levothyrox ine 75mcg daily back up; her labs will be off and we discussed this. Long-term drug therapy 934619521 Z79.899 cmp, cbc and b12, folate labs are due Diabetes m carlynitus screening 599707374 Z13.1 a1c screening is due Cholesterol screening 27 4582121 Z13.220 fasting lipids are due Screening mammography 24 190736 Z12.31 mammogram is due. order given. Body mass index 30+ - obesity 814807196 Z68.38 bmi 38.1 Obesity 369693158 E66.9 discussed healthy diet, exercise, controllin g carbohydra bola and added sugars in the diet [id number] Tevin Dalal MD [facility] [address] [place] [address] 10/04/2023 16:22:31 10/04/2023 17:13:00 Benign essential hypertension 2591201 I10 Change to valsartan 320 mg daily due to XAVIER inhibitor cough. Her blood pressure is still elevated today at 170/80 range. There [facility] be a [facility]. She will continue to monitor home blood pressure readings. The readings that she brought in today are not quite this elevated but were still not to goal on several checks. Body mass index 30+ - obesity 524011556 Z68.38 bmi 38.5 Obesity 833638801 E66.8 discussed healthy diet, exercise, controllin g carbohydra bola and added sugars in the diet [id number] Tevin Dalal MD [facility] [place] [id number] 04/26/2024 10:45:17 04/26/2024 12:05:08 Benign essential hypertension 4186716 I10 Continue valsartan 320 mg daily. Blood pressure is 160/90 today it is consistent ly elevated [facility] All of her home readings are much more controlled below 140/80. I have encouraged patient to continue monitoring her home blood pressures and notify provider if there are any persistent spikes that occur. She will continue to watch caffeine, salt and try to add some exercise in. Next appointmen t scheduled for September 06 Body mass index 30+ - obesity 109598205 Z68.38 bmi 38.5 Obesity 497686363 E66.9 discussed healthy diet, exercise, controllin g carbohydra bola and added sugars in the diet Hypothyroidism 53017373 E03.9 Patient is on levothyrox ine 75 mcg daily and is due for updated thyroid function testing Long-term drug therapy 629192128 Z79.899 cmp, cbc and b12, folate labs are due Diabetes m ellitus screening 555954371 Z13.1 a1c screening is due Cholesterol screening 27 1431576 Z13.220 fasting lipids are due Screening mammography 24 645687 Z12.31 mammogram is due. order given. 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 Benign ess ential hypertension 1286603 I10 Continue valsartan 320 mg daily. Blood pressure is 160/90 today it is consistent ly elevated in the clinic environmen t. 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 There is room for improvemen t based off of recent labs Long-term drug therapy 754571817 Z79.899 Labs reviewed Cobalamin deficiency 190 577433 E53.8 117065 Start over-the-c ounter vitamin B12 supplement 1000 mcg daily. She does not want to do any monthly shots Health Concerns Section Related Observation LastModified by Organization Detai ls LastModified Time None Recorded Concern Status LastModified by Organization Details LastModified Time None Recorded Advance Directives Directive N: Payers Insurance Date Sequence Insurance Name Policy Number Policy Covarrubias Covered Member ID Covarrubias Member ID Guarantor Name 09/09/2024 1 [facility] Micha Wells [id number] Shirin Wells Notes Date Note Type Note Provider Name and Address Organization Details Recorded Time 4 text/html HypertensionReported by Patientpt is taking lisinopril 20mg daily. her BP is high today. ThyroidReported by Patientpt has been out of levothyroxine 75mcg daily since may she thinks. MARC Gallegos Attn: Accounting,[address], [place], [address], [facility] 09/07/2023 21:20:59 4 text/html Hypertension F/UReported by PatientHPIFor lifestyle, patient reportsnot exercising regularly. For medications, patient reportstaking medications as directed.Pt is here for a f/u after increasing lisinopril to 40mg. She is having a cough from the lisinopril and would like to discuss changing to an alternate option. MARC Gallegos Attn: Accounting,[address], [place], [address], [facility] 10/15/2023 13:24:49 5 text/html Hypertension F/UReported by PatientIFor lifestyle, patient reportsnot exercising regularly. For medications, patient reportstaking medications as directed.Blood pressure is still elevated in the Clinical environment today patient reports that her home readings are not consistent with the elevations that she has in the office. She is taking her valsartan 320 mg daily ThyroidReported by PatientPatient continues levothyroxine 75 mcg daily for thyroid supplementation. MARC Gallegos Attn: Accounting,[address] [facility], [place], [address], [place] [facility] 05/12/2024 14:58:25 5 text/html Hypertension F/UReported by PatientIFor lifestyle, patient reportsnot exercising regularly. For medications, patient reportstaking medications as directed.Blood pressure is still elevated in the Clinical environment today patient reports that her home readings are not consistent with the elevations that she has in the office but she does get in the 140s and 150s which is higher than it has been at home.. She is taking her valsartan 320 mg daily ThyroidReported by PatientPatient continues levothyroxine 75 mcg daily for thyroid supplementation. MARC Gallegos Attn: Accounting,[address], [place], [address], [place] [facility] 09/06/2024 11:30:52 OBGyn Episode No OBEpisode recorded.
--- OUTSIDE RECORDS SUMMARY | 2025-01-28 18:42 | XMS_ITS | Data Portability ---
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 Lab noninvasive colorectal cancer DNA + occult blood screening, QL, stool 2022 023 [facility], [address], [address], [place], [address], 11:24:46 Referral None recorded. Procedures None recorded. Surgeries None recorded. Imaging MAMMO, screening, bilateral 2022 023 [email or web address] Not available 09:44:07 Medication Orders None recorded. Patient TargetsNo targets recorded. Patient Instructions Encounter Date Encounter Id Patient Instructions Last Modified By Organization Details Last Modified Time 10/12/2022 [id number] INFLUENZA VACCIN E Next vaccination to be given fall of 2022 TD/TDAP Patient will get at local pharmacy/health department PNEUMONIA VACCINE Recommended at age 67 SHINGLES Patient will get at local pharmacy/health department MAMMOGRAM: Last Mammogram __ Ordered DEXA SCAN No screening indicated CERVICAL SCREENING/PELVIC EXAMINATION No screening necessary patient is up to date COLORECTAL SCREENING: Last Colonoscopy Colonoscopy declined. Cologuard ordered DEPRESSION SCREENING Negative BMI Obesity try to lose 5% of your body weight NUTRITION Continue healthy eating & exercise PHYSICAL ACTIVITY Need more exercise/physical activity minimum of 30-40 minutes of activity that causes mild breathlessness/da y VISION Recommended today ALCOHOL USE No alcohol use TOBACCO USE non smoker LUNG CANCER SCREENING Non Smoker-not indicated SEXUALLY ACTIVE Yes, Patient is in monogamous relationship HEPATITIS C SCREENING Ordered GLUCOSE SCREENING Not needed LIPID SCREENING Not needed [email or web address] Not available 10/12/2022 14:45:18 Reason for Referral None Reported. Results Created Date Observation Date Name Description Value Unit Range Abnormal Flag Note LastModifiedBy Organization Detail LastModifiedTime 10/06/1910/05/2022 CBC/C OMPLE TE BLD COUNT W/DIF F white blood cells 5.9 x10'3 /uL 4.2-10 .8 Not Available [facility] (Lab) [address] [place], [address], 10/05/2022 19:02:32 10/06/19 23 10/05/2022 CBC/C OMPLE TE BLD COUNT W/DIF F red blood cells 4.53 x10'6 /uL 3.80-5 .20 Not Available [facility] (Lab) [address] [place], [address], 10/05/2022 19:02:32 10/06/19 23 10/05/2022 CBC/C OMPLE TE BLD COUNT W/DIF F hemoglobin 13.5 g/dL 12.0-1 5.6 Not Available [facility] (Lab) [address] [place], [address], 10/05/2022 19:02:32 10/06/19 23 10/05/2022 CBC/C OMPLE TE BLD COUNT W/DIF F hematocrit 41.9 % 35.7-4 5.7 Not Available [facility] (Lab) [address] [place], [address], 10/05/2022 19:02:32 10/06/19 23 10/05/2022 CBC/C OMPLE TE BLD COUNT W/DIF F mean red cell volume 92.5 fL 82.0-9 9.0 Not Available [facility] (Lab) [address] [place], [address], 10/05/2022 19:02:32 10/06/19 23 10/05/2022 CBC/C OMPLE TE BLD COUNT W/DIF F mean red cell hemoglobin 29.8 pg 27.0-3 3.0 Not Available [facility] (Lab) [address] [place], [address], 10/05/2022 19:02:32 10/06/19 23 10/05/2022 CBC/C OMPLE TE BLD COUNT W/DIF F mean RBC HGB concentratio n 32.2 g/dL 31.0-3 6.0 Not Available [facility] (Lab) [address] [facility] [place] [place], [address], 10/05/2022 19:02:32 10/06/19 23 10/05/2022 CBC/C OMPLE TE BLD COUNT W/DIF F red cell distribution width 12.2 % 11.8-1 5.5 Not Available [facility] (Lab) [address] [place], [address], 10/05/2022 19:02:32 10/06/19 23 10/05/2022 CBC/C OMPLE TE BLD COUNT W/DIF F platelets 335 x10'3 /uL 150-40 0 Not Available [facility] (Lab) [address] [place], [address], 10/05/2022 19:02:32 10/06/19 23 10/05/2022 CBC/C OMPLE TE BLD COUNT W/DIF F mean platelet volume 10.3 fL 9.0-12 .4 Not Available [facility] (Lab) [address] [place], [address], 10/05/2022 19:02:32 10/06/1910/05/2022 CBC/C OMPLE TE BLD COUNT W/DIF F neutrophils 45.8 % 39.0-7 2.0 Not Available [facility] (Lab) [address] [place], [address], 10/05/2022 19:02:32 10/06/19 23 10/05/2022 CBC/C OMPLE TE BLD COUNT W/DIF F lymphocytes 40.3 % 16.0-4 7.0 Not Available [facility] (Lab) [address] [place], [address], 10/05/2022 19:02:10/06/1910/05/2022 CBC/C OMPLE TE BLD COUNT W/DIF F monocytes 7.8 % 5.0-12 .0 Not Available [facility] (Lab) [address] [place], [address], 10/05/2022 19:02:32 10/06/1910/05/2022 CBC/C OMPLE TE BLD COUNT W/DIF F eosinophils 4.8 % 1.0-7. 0 Not Available [facility] (Lab) [address] [place], [address], 10/05/2022 19:02:32 10/06/19 23 10/05/2022 CBC/C OMPLE TE BLD COUNT W/DIF F basophils 1.0 % 0.0-2. 0 Not Available [facility] (Lab) [address] [place], [address], 10/05/2022 19:02:32 10/06/19 23 10/05/2022 CBC/C OMPLE TE BLD COUNT W/DIF F immature granulocytes 0.3 % 0.00-0 .50 Not Available [facility] (Lab) [address] [place], [address], 10/05/2022 19:02:32 10/06/1910/05/2022 CBC/C OMPLE TE BLD COUNT W/DIF F neutrophils, absolute count 2.68 x10'3 /uL 1.5-8. 0 Not Available [facility] (Lab) [address] [place], [address], 10/05/2022 19:02:32 10/06/19 23 10/05/2022 CBC/C OMPLE TE BLD COUNT W/DIF F lymphocytes, absolute count 2.36 x10'3 /uL 1.07-3 .43 Not Available [facility] (Lab) [address] [place], [address], 10/05/2022 19:02:32 10/06/19 23 10/05/2022 CBC/C OMPLE TE BLD COUNT W/DIF F monocytes, absolute count 0.46 x10'3 /uL 0.29-0 .99 Not Available [facility] (Lab) [address] [place], [address], 10/05/2022 19:02:32 10/06/19 23 10/05/2022 CBC/C OMPLE TE BLD COUNT W/DIF F eosinophils, absolute count 0.28 x10'3 /uL 0.02-0 .53 Not Available [facility] (Lab) [address] [place], [address], 10/05/2022 19:02:32 10/06/1910/05/2022 CBC/C OMPLE TE BLD COUNT W/DIF F basophils, absolute count 0.06 x10'3 /uL 0.01-0 .08 Not Available [facility] (Lab) [address] [place], [address], 10/05/2022 19:02:32 10/06/19 23 10/05/2022 CBC/C OMPLE TE BLD COUNT W/DIF F immature granulocytes ,absolute 0.02 x10'3 /uL 0.00-0 .05 Not Available [facility] (Lab) [address] [place], [address], 10/05/2022 19:02:32 10/06/19 23 10/05/2022 CBC/C OMPLE TE BLD COUNT W/DIF F nucleated red blood cells 0.0 % -0 Not Available [facility] (Lab) [address] [place], [address], 10/05/2022 19:02:32 10/06/19 23 10/05/2022 CBC/C OMPLE TE BLD COUNT W/DIF F NRBC# 0.00 x10'3 /uL Not Available [facility] (Lab) [address] [place], [address], 10/05/2022 19:02:32 10/06/19 23 10/05/2022 COMPR EHENS MAXIM METAB OLIC PANEL sodium 139 mmol/ L 137-14 5 Not Available [facility] (Lab) [address] [place], [address], 10/05/2022 19:13:24 10/06/19 23 10/05/2022 COMPR EHENS MAXIM METAB OLIC PANEL potassium 4.7 mmol/ L 3.5-5. 1 Not Available [facility] (Lab) [address] [place], [address], 10/05/2022 19:13:24 10/06/19 23 10/05/2022 COMPR EHENS MAXIM METAB OLIC PANEL chloride 99 mmol/ L 98-107 Not Available [facility] (Lab) [address] [place], [address], 10/05/2022 19:13:24 10/06/19 23 10/05/2022 COMPR EHENS MAXIM METAB OLIC PANEL carbon dioxide 27 mmol/ L 22-30 Not Available [facility] (Lab) [address] [place], [address], 10/05/2022 19:13:24 10/06/19 23 10/05/2022 COMPR EHENS MAXIM METAB OLIC PANEL anion gap 17.7 mmol/ L 14-22 Not Available [facility] (Lab) [address] [place], [address], 10/05/2022 19:13:24 10/06/19 23 10/05/2022 COMPR EHENS MAXIM METAB OLIC PANEL glucose 85 mg/dL 70-99 Not Available [facility] (Lab) [address] [place], [address], 10/05/2022 19:13:24 10/06/19 23 10/05/2022 COMPR EHENS MAXIM METAB OLIC PANEL BUN 10 mg/dL 8-19 Not Available [facility] (Lab) [address] [place], [address], 10/05/2022 19:13:24 10/06/1910/05/2022 COMPR EHENS MAXIM METAB OLIC PANEL creatinine 0.72 mg/dL 0.66-1 .25 Not Available [facility] (Lab) [address] [place], [address], 10/05/2022 19:13:24 10/06/1910/05/2022 COMPR EHENS MAXIM METAB OLIC PANEL GFR >60 Refer ence Range : [place] ge GFR Healt hy Adult : >60 mL/mi n/1.7 3 m2 Chron ic Kidne y Disea se: 15-60 mL/mi n/1.7 3 m2 Kidne y Failu re: <15/m L/min /1.73 m2 www.n iddk. nih.g ov The MDRD study equat ion has not been valid ated in child jurgen <18 years of age; pregn ant women ; the elder ly >85 years of age; or in some racia l or ethni c subgr oups, such as Hispa nics. Outsi de the valid ated cecilia eters , estim ated GFR is less accur ate, requi ring clini jhonatan judgm ent on a case- by-ca se basis . Clini jhonatan inter preta tion for other races and ages must be made by the clini edgardo. The MDRD study equat ion has not been valid ated for the evalu ation of serum creat inine relat ed to nutri john l statu s or medic ation usage . For perso ns <18 years of age, a pedia tric GFR calcu lator is avail able on the [facility] websi te: https ://miguel gomez.brent shafer.tyrel pike/pr ofess ional s/kdo qi/gf r_cal culat or Not Available [facility] (Lab) [address] [place], [address], 10/05/2022 19:13:24 10/06/1910/05/2022 COMPR EHENS MAXIM METAB OLIC PANEL alkaline phosphatase 113 U/L 38-126 Not Available [facility] (Lab) [address] [place], [address], 10/05/2022 19:13:24 10/06/1910/05/2022 COMPR EHENS MAXIM METAB OLIC PANEL alanine aminotransfe rase 245 U/L 0-35 high Not Available [facility] (Lab) [address] [place], [address], 10/05/2022 19:13:24 10/06/19 23 10/05/2022 COMPR EHENS MAXIM METAB OLIC PANEL aspartate aminotransfe rase 164 U/L 15-37 high Not Available [facility] (Lab) [address] [place], [address], 10/05/2022 19:13:24 10/06/19 23 10/05/2022 COMPR EHENS MAXIM METAB OLIC PANEL bilirubin, total 0.60 mg/dL 0.20-1 .30 Not Available [facility] (Lab) [address] [facility] [place], [address], 10/05/2022 19:13:24 10/06/1910/05/2022 COMPR EHENS MAXIM METAB OLIC PANEL calcium 9.6 mg/dL 8.4-10 .2 Not Available [facility] (Lab) [address] [place], [address], 10/05/2022 19:13:24 10/06/19 23 10/05/2022 COMPR EHENS MAXIM METAB OLIC PANEL total protein 7.6 g/dL 6.3-8. 2 Not Available [facility] (Lab) [address] [place], [address], 10/05/2022 19:13:24 10/06/19 23 10/05/2022 COMPR EHENS MAXIM METAB OLIC PANEL albumin 4.7 g/dL 3.4-5. 0 Not Available [facility] (Lab) [address] [place], [address], 10/05/2022 19:13:24 10/06/19 23 10/05/2022 COMPR EHENS MAXIM METAB OLIC PANEL globulin 2.9 g/dL 2.6-4. 2 Not Available [facility] (Lab) [address] [place], [address], 10/05/2022 19:13:24 10/06/1910/05/2022 COMPR EHENS MAXIM METAB OLIC PANEL A/G ratio 1.6 ratio 1.0-2. 0 Not Available [facility] (Lab) [address] [place], [address], 10/05/2022 19:13:24 10/06/1910/05/2022 LIPID PANEL cholesterol 211 mg/dL 140-19 9 high NIH BLU NSUS RECOM MENDA TION FOR MARCELO STERO L: ADULT CHILD LOW RISK: <200 <170 BORDE RLINE : <200- 239 ----- HIGH RISK: >240 >200 Not Available [facility] (Lab) [address] [place], [address], 10/05/2022 19:13:29 10/06/1910/05/2022 LIPID PANEL triglyceride s 93 mg/dL 0-150 NIH BLU NSUS REPOR T RECOM MENDA TION FOR TRIGL YCERI GLORIA: ADULT CHILD LOW RISK: <150 ----- BODER LINE: 150-1 99 ----- HIGH RISK: >200 ----- Not Available [facility] (Lab) [address] [place], [address], 10/05/2022 19:13:29 10/06/1910/05/2022 LIPID PANEL HDL cholesterol 72 mg/dL 40- Not Available [facility] (Lab) [address] [place], [address], 10/05/2022 19:13:29 10/06/1910/05/2022 LIPID PANEL LDL cholesterol, calculated 120 mg/dL 0-130 NIH BLU NSUS REPOR T RECOM MENDA TIONS FOR LDL: ADULT CHILD LOW RISK <130 <110 (OPTI MAL LDL) <100 ----- BORDE RLINE : 130-1 59 ----- HIGH RISK: >160 >130 A TRIGL YCERI DE RESUL T >400 INVAL IDATE S THE CALCU LATIO N FOR LDL FRACT IONAT ION - THE LDL RESUL T WILL NOT BE REPOR TEN. Not Available [facility] (Lab) [address] [place], [address], 10/05/2022 19:13:29 10/06/1910/05/2022 T3 FREE free T3 3.7 pg/mL 2.77-5 .27 Not Available [facility] (Lab) [address] [place], [address], 10/05/2022 20:42:40 10/06/1910/0510/05/2022 T4 FREE free T4 1.52 NG/dL 0.78-2 .19 Not Available [facility] (Lab) [address] [place], [address], 10/05/2022 19:52:13 10/06/19 23 10/05/2022 TSH thyroid-stim ulating hormone 2.530 uIU/m L 0.465- 4.680 Not Available [facility] (Lab) [address] [place], [address], 10/05/2022 19:55:56 10/06/19 23 10/05/2022 HEMOG LOBIN A1C HA1C 5.4 % 4.0-6. 0 Diabe bola Scree claudette Crite wolfgang: <5.7% Consi stent with absen ce of diabe bola 5.7-6 .4% Consi stent with incre ased risk for diabe bola (pred iabet es) >OR=6 .5% Consi stent with diabe bola REFER ENCE: Diabe bola Care 2016, 39(Perez ppl.1 ):s13 -s22 Not Available [facility] (Lab) [address] [place], [address], 10/05/2022 20:25:16 10/06/19 23 10/07/2022 THYRO ID PEROX IDASE (TPO) AB thyroid peroxidase (tpo) Ab 254 IU/mL 0-34 high [facility] at: [facility] [address] [place], [place] [address] [facility] Lab Direc tor: Brennan vieira PhD, Phone : [phone] Not Available [facility] (Lab) [address] [place], [address], 10/07/2022 08:19:30 10/07/19 23 10/06/2022 URINA LYSIS COMPL ETE/I RIS W/RFX color LIGHT- YELLOW Not Available [facility] (Lab) [address] [place], [address], 10/06/2022 19:38:35 10/07/19 23 10/06/2022 URINA LYSIS COMPL ETE/I RIS W/RFX appear TURBID abnormal Not Available [facility] (Lab) [address] [place], [address], 10/06/2022 19:38:35 10/07/19 23 10/06/2022 URINA LYSIS COMPL ETE/I RIS W/RFX specific gravity 1.013 1.001- 1.030 Not Available [facility] (Lab) [address] [place], [address], 10/06/2022 19:38:35 10/07/19 23 10/06/2022 URINA LYSIS COMPL ETE/I RIS W/RFX pH 6.0 pH_un its 5.0-9. 0 Not Available [facility] (Lab) [address] [place], [address], 10/06/2022 19:38:35 10/07/19 23 10/06/2022 URINA LYSIS COMPL ETE/I RIS W/RFX leukocytes NEGATI VE deon/u L negati ve- Not Available [facility] (Lab) [address] [place], [address], 10/06/2022 19:38:35 10/07/19 23 10/06/2022 URINA LYSIS COMPL ETE/I RIS W/RFX nitrite NEGATI VE negati ve- Not Available [facility] (Lab) [address] [place], [address], 10/06/2022 19:38:35 10/07/19 23 10/06/2022 URINA LYSIS COMPL ETE/I RIS W/RFX protein NEGATI VE mg/dL negati ve- Not Available [facility] (Lab) [address] [place], [address], 10/06/2022 19:38:35 10/07/19 23 10/06/2022 URINA LYSIS COMPL ETE/I RIS W/RFX glucose NORMAL mg/dL normal - Not Available [facility] (Lab) [address] [place], [address], 10/06/2022 19:38:35 10/07/19 23 10/06/2022 URINA LYSIS COMPL ETE/I RIS W/RFX ketones 10 mg/dL negati ve- abnormal Not Available [facility] (Lab) [address] [place], [address], 10/06/2022 19:38:35 10/07/19 23 10/06/2022 URINA LYSIS COMPL ETE/I RIS W/RFX urobilinogen NORMAL mg/dL normal - Not Available [facility] (Lab) [address] [place], [address], 10/06/2022 19:38:35 10/07/19 23 10/06/2022 URINA LYSIS COMPL ETE/I RIS W/RFX bilirubin NEGATI VE mg/dL negati ve- Not Available [facility] (Lab) [address] [place], [address], 10/06/2022 19:38:35 10/07/19 23 10/06/2022 URINA LYSIS COMPL ETE/I RIS W/RFX blood NEGATI VE mg/dL negati ve- Not Available [facility] (Lab) [address] [place], [address], 10/06/2022 19:38:35 10/07/19 23 10/06/2022 URINA LYSIS COMPL ETE/I RIS W/RFX white blood cells 0-8 /i??h pfi?? 0-8 Not Available [facility] (Lab) [address] [place], [address], 10/06/2022 19:38:35 10/07/19 23 10/06/2022 URINA LYSIS COMPL ETE/I RIS W/RFX red blood cells 0-4 /i??h pfi?? 0-4 Not Available [facility] (Lab) [address] [place], [address], 10/06/2022 19:38:35 10/07/19 23 10/06/2022 URINA LYSIS COMPL ETE/I RIS W/RFX bacteria NONE Not Available [facility] (Lab) [address] [place], [address], 10/06/2022 19:38:35 10/07/19 23 10/06/2022 URINA LYSIS COMPL ETE/I RIS W/RFX mucous FEW /i??l pfi?? abnormal Not Available [facility] (Lab) [address] [place], [address], 10/06/2022 19:38:35 10/07/19 23 10/06/2022 URINA LYSIS COMPL ETE/I RIS W/RFX squamous epithelial PACKED FIELD /i??l pfi?? abnormal Not Available [facility] (Lab) [address] [place], [address], 10/06/2022 19:38:35 10/19/19 23 10/18/2022 HEPAT IC/LI LUBA PANEL alkaline phosphatase 101 U/L 38-126 Not Available [facility] (Lab) [address] [place], [address], 10/18/2022 14:43:16 10/19/19 23 10/18/2022 HEPAT IC/LI LUBA PANEL alanine aminotransfe rase 277 U/L 0-35 high Not Available [facility] (Lab) [address] [place], [address], 10/18/2022 14:43:16 10/19/19 23 10/18/2022 HEPAT IC/LI LUBA PANEL aspartate aminotransfe rase 290 U/L 15-37 high Not Available [facility] (Lab) [address] [place], [address], 10/18/2022 14:43:16 10/19/19 23 10/18/2022 HEPAT IC/LI LUBA PANEL bilirubin, total 0.30 mg/dL 0.20-1 .30 Not Available [facility] (Lab) [address] [place], [address], 10/18/2022 14:43:16 10/19/19 23 10/18/2022 HEPAT IC/LI LUBA PANEL bilirubin, conjugated (direct) 0.00 mg/dL 0.00-0 .30 Not Available [facility] (Lab) [address] [place], [address], 10/18/2022 14:43:16 10/19/19 23 10/18/2022 HEPAT IC/LI LUBA PANEL biliurubin,u ncong. (indirect) 0.10 mg/dL 0.00-1 .1 Not Available [facility] (Lab) [address] [place], [address], 10/18/2022 14:43:16 10/19/19 23 10/18/2022 HEPAT IC/LI LUBA PANEL total protein 7.0 g/dL 6.3-8. 2 Not Available [facility] (Lab) [address] [place], [address], 10/18/2022 14:43:16 10/19/19 23 10/18/2022 HEPAT IC/LI LUBA PANEL albumin 4.2 g/dL 3.4-5. 0 Not Available [facility] (Lab) [address] [place], [address], 10/18/2022 14:43:16 10/19/19 23 10/18/2022 HEPAT IC/LI LUBA PANEL globulin 2.8 g/dL 2.6-4. 2 Not Available [facility] (Lab) [address] [place], [address], 10/18/2022 14:43:16 10/19/19 23 10/18/2022 HEPAT IC/LI LUBA PANEL A/G ratio 1.5 ratio 1.0-2. 0 Not Available [facility] (Lab) [address] [place], [address], 10/18/2022 14:43:16 10/19/19 23 10/18/2022 GGT/G -GLUT AMYL TRANS FERAS E gamma-glutam yl transferase 374 U/L 12-43 high Not Available [facility] (Lab) [address] [place], [address], 10/18/2022 14:43:19 10/19/19 23 10/18/2022 HEPAT ITIS ACUTE PANEL hepatitis A IgM antibody NON-RE ACTIVE non-re active For sampl es repor ten as Borstevensine React maxim for HAV IgM, it is recom frank d a new speci men be obtai jameson in 2 weeks and retes ten. Not Available [facility] (Lab) [address] [place], [address], 10/18/2022 16:21:49 10/19/19 23 10/18/2022 HEPAT ITIS ACUTE PANEL hepatitis A virus signal/cutof 0.01 0.00-0 .79 Not Available [facility] (Lab) [address] [place], [address], 10/18/2022 16:21:49 10/19/19 23 10/18/2022 HEPAT ITIS ACUTE PANEL hepatitis B core IgM antibody NON-RE ACTIVE non-re active Not Available [facility] (Lab) [address] [place], [address], 10/18/2022 16:21:49 10/19/19 23 10/18/2022 HEPAT ITIS ACUTE PANEL HBV core IgM signal/cutof f 0.04 0.00-1 .10 Not Available [facility] (Lab) [address] [place], [address], 10/18/2022 16:21:49 10/19/19 23 10/18/2022 HEPAT ITIS ACUTE PANEL hepatitis B surface antigen NON-RE ACTIVE non-re active All speci mens react maxim for Hepat itis B Surfa ce Antig en will refle x to refer ral lab confi rmato ry testi ng. Not Available [facility] (Lab) [address] [place], [address], 10/18/2022 16:21:49 10/19/19 23 10/18/2022 HEPAT ITIS ACUTE PANEL HBV surf.antigen signal/cutof f 0.04 0.00-0 .99 Not Available [facility] (Lab) [address] [place], [address], 10/18/2022 16:21:49 10/19/19 23 10/18/2022 HEPAT ITIS ACUTE PANEL hepatitis C antibody NON-RE ACTIVE non-re active All speci mens react maxim for Hepat itis C Virus antib shivam will refle x to PCR confi rmato ry testi ng. Pleas e allow 48-72 hours for resul ts. Not Available [facility] (Lab) [address] [place], [address], 10/18/2022 16:21:49 10/19/19 23 10/18/2022 HEPAT ITIS ACUTE PANEL hepatitis C virus signal/cutof 0.06 0.00-0 .99 Not Available [facility] (Lab) [address] [place], [address], 10/18/2022 16:21:49 11/02/19 23 11/01/2022 COLOG UARD cologuard result reportable NEGATI VE negati ve NEGAT MAXIM TEST RESUL T. A negat maxim Colog uard resul t indic ates a low likel ihood that a color ectal cance r (CRC) or advan charles adeno ma (nory omato us polyp s with more advan charles pre-m align ant featu res) is prese nt. The [facility] [place] e that a perso n with a negat maxim Colog uard test has a color ectal cance r is less than 1 in 1500 (nega tive predi ctive value >99.9 %) or has an advan charles adeno ma is less than 5.3% (nega tive predi ctive value 94.7% ). These data are based on a prosp ectiv e cross -sect ional study of ,00 0 ind[facility]ual s at [place] [facility] risk for color ectal cance r who were scree jameson with both Colog uard and colon oscop y. (Oc Woo. et al, N Engl J Med 2014; 370(1 4):12 86-12 97) The leora l value (refe rence range ) for this assay is negat maxim. COLOG UARD RE-SC REENI NG RECOM MENDA TION: Perio dic color ectal cance r scree claudette is an impor tant part of preve ntive healt hcare for asymp tomat ic indiv idual s at [place] [facility] risk for color ectal cance r. Follo wing a negat maxim Colog uard resul t, the Ameri can Cance r Socie ty and [place]. Multi -Soci ety Task Force scree claudette guide lines recom mend a Colog uard re-sc reeni ng inter ruth of 3 years . Refer ences : Ameri can Cance r Socie ty Guide line for Color ectal Cance r Scree claudette: [email or web address] :[email or web address] [email or web address] colon -rect al-ca ncer/ detec tion- diagn osis- stagi ng/ac s-rec ommen datio ns.ht ml.; Filiberto OHARA, Edna BUTTERFIELD, Conchita MANDUJANO, Color ectal Cance r Scree claudette: Recom menda tions for Physi cians and Patie nts from the [place]. Multi -Soci ety Task Force on Color ectal Cance r Scree claudette , Shankar matamoros rolog y 2017; 112:1 016-1 030. TEST DESCR IPTIO N: Seth Ward site algor ithmi c [place] sis of stool DNA-b iopablo kers with hemog lobin immun oassa y. Quant itati ve value s of indiv idual bioma rkers are not repor table and are not assoc iated with indiv idual bioma rker resul t refer ence range s. Colog uard is inten ded for color ectal cance r scree claudette of adult s of eithe r sex, 45 years or older , who are at [facility] for color ectal cance r ([facility]) . Colog uard has been appro adry for use by the [place] FDA. The perfo rmanc e of Colog uard was estab lishe d in a cross secti onal study of [facility] adult s aged 50-84 . Colog uard perfo rmanc e in patie nts ages 45 to 49 years was estim ated by sub-g roup [place] sis of near- age group s. Colon oscop ies perfo rmed for a posit maxim resul t may find as the most clini mery signi fican t lesio n: color ectal cance r [4.0% ], advan charles adeno ma (incl uding sessi le ceci ten polyp s great er than or equal to 1cm diame ter) [20%] or non- advan charles adeno ma [31%] ; or no color ectal neopl alphonso [45%] . These estim ates are deriv ed from a prosp ectiv e cross -sect ional scree claudette study of ,00 0 indiv idual s at [facility] risk for color ectal cance r who were scree jameson with both Colog uard and colon oscop y. (Oc Martin et al, N Engl J Med 2014; 370(1 4):12 86-12 97.) Colog uard may produ ce a false negat maxim or false posit maxim resul t (no color ectal cance r or preca ncero us polyp prese nt at colon oscop y follo w up). A negat maxim Colog uard test resul t does not guara ntee the absen ce of CRC or advan charles adeno ma (pre- cance r). The curre nt Colog uard scree claudette inter ruth is every 3 years . (Amer pinon Cance r Socie ty and U.S. Multi -Soci ety Task Force ). Colog uard perfo rmanc e data in a 10,00 0 patie nt pivot al study using colon oscop y as the refer ence metho d can be acces sed at the follo wing locat ion: www.e xactl abs.c om/re sults . Addit ional descr iptio n of the Colog uard test proce ss, warni ngs and preca ution s can be found at www.c annyu rogelio.c om. Not Available [facility] [address], [place], [address], 11/08/2022 11:24:46 10/19/19 23 US, abdom en, limit ed [facility] [address] [place] [address] Patien t Name: SHIRIN KILGORE Access ion #: [id number] Sex: F : 1970 6 Dictat ed By: Ashley alcocer Attend ing Physic greg: YOU VAUGHN Physic greg: ERIKA ORTA Exam Date: 2022 08:54 AM Exam Name: US ABD/LT D/ORG/ UQ/GB Admitt ing Diagno sis(es ): CLINIC AL INFORM ATION: Elevat ed liver enzyme s. TECHNI QUE: Graysc robert sonogr aphic imagin g of the right upper quadra nt of the abdome n was perfor med, assist ed by color Dopple r techni ques. COMPAR JUANITA: No prior studie s. FINDIN GS: The gallbl adder wall measur es 2.3 mm in thickn ess, within normal limits . Nonmob ile echoge selam struct ure is seen at the gallbl adder neck, possib ly an adhere nt gallst one or gallbl adder polyp, measur ing up to 1.1 cm. Negati ve report ed sonogr aphic Loving sign. The common bile duct measur es 6.1 mm in diamet er, within normal limits . The liver measur es 16.8 cm in cranio caudal dimens ion, at the upper limits of normal . Slight ly increa sed echoge nicity of the liver, possib le fatty infilt ration . The pancre as is partly obscur ed, likely by bowel gas. The visual ized portio ns appear normal . The right kidney measur es 9.7 cm. There is no stone or hydron ephros is. Mild cortic al thinni ng. Normal cortic al echoge nicity . IMPRES TANK: 1. Nonmob ile echoge selam struct ure at the gallbl adder neck, possib ly adhere nt gallst one or polyp. No sonogr aphic eviden ce of acute cholec ystiti s. 2. Liver measur es at the upper limits of normal in size. Slight ly increa sed echoge nicity of the liver may sugges t a degree of fatty infilt ration . 3. Additi onal findin gs as descri bed above. Electr onical ly Signed by: Ashley alcocer at 2022 11:50: 55 AM Page 1 [email or web address] [facility] ([facility]) [address] [place], [address], 10/19/2022 14:47:15 10/28/19 23 MAMMO , scree claudette, digit al, bilat eral [facility] [address] [place] [address] Patien t Name: WILSON AGUIARSHIRIN Access ion #: [id number] Sex: F : 1970 8 Dictat ed By: Ashley alcocer Attend ing Physic greg: YOU VAUGHN Orderaniyah aggarwal Physic greg: YOU VAUGHN Exam Date: 2022 08:09 AM Exam Name: MG OSVALDO Dunlap YOLY BILAT SCREEN Admitt ing Diagno sis(es ): CLINIC AL HISTOR Y: Screen ing exam, no breast compla ints. No person al histor y of breast cancer . Prior benign right breast biopsy in 2020. No family histor y of breast cancer . COMPAR JUANITA: Prior mammog rosas dated 2019. Correl ation was also made to prior diagno stic right breast ultras ound dated 021. TECHNI QUE: Full field bilate ral digita l mammog jorge was perfor med in the CC and MLO projec tions. CAD was utiliz ed. FINDIN GS: There are scatte red fibrog landul ar densit ies (categ ory B). Biopsy marker clip in the right inner breast from prior benign needle biopsy . No suspic ious mass, kristen ectura l distor tion, or suspic ious microc alcifi cation s are seen. The axilla e, skin and nipple s are normal . IMPRES TANK: Benign findin gs. RECOMM ENDATI ONS: In the absenc e of new breast compla ints, annual screen ing is recomm ended. The patien t will be notifi ed of the mammog jorge result s per hospit al protoc ol. BI-RAD S CATEGO RY: 2: Benign . Electr onical ly Signed by: Ashley alcocer at 2022 10:58: 24 AM Page 1 [email or web address] [facility] [address] [place], [address], 10/27/2022 16:46:13 12/06/19 23 12/05/2022 XR, chest No observ ation record ed. [address], [address], 12/05/2022 17:16:12 12/06/19 23 12/05/2022 CT, angio gram, chest , w/ contr ast No observ ation record ed. [address], [address], 12/05/2022 17:16:42 Result Notes Documentation Provider Name and Address Organization Details Recorded Time Mammo, Screening, Digital, Bilateral : [facility] [address] [place], [place] [id number] [phone] Patient Name: SHIRIN WELSL Sex: F : 1970 Dictated By: Tevin Quintanilla Attending Physician: YOU VAUGHN Ordering Physician: YOU VAUGHN Exam Date: 10/27/2022 08:09 AM Exam Name: MG DIGITAL YOLY BILAT SCREEN Admitting Diagnosis(es): CLINICAL HISTORY: Screening exam, no breast complaints. No personal history of breast cancer. Prior benign right breast biopsy in 2020. No family history of breast cancer. COMPARISON: Prior mammogram dated 02/27/2020. Correlation was also made to prior diagnostic right breast ultrasound dated 07/27/2020. TECHNIQUE: Full field bilateral digital mammography was performed in the CC and MLO projections. CAD was utilized. FINDINGS: There are scattered fibroglandular densities (category B). Biopsy marker clip in the right inner breast from prior benign needle biopsy. No suspicious mass, architectural distortion, or suspicious microcalcifications are seen. The axillae, skin and nipples are normal. IMPRESSION: Benign findings. RECOMMENDATIONS: In the absence of new breast complaints, annual screening is recommended. The patient will be notified of the mammography results per hospital protocol. BI-RADS CATEGORY: 2: Benign. Page 1 PIERCE Storm [place] [facility] [employer] 10/27/2022 16:46:13 Problems Name Problem SNOMED Code Status Onset Date Resolution Date Notes Provider Name and Address Organization Details Recorded Time Essential hypertensi on 67299587 Active 2019 Not Available [facility] 3 08:23:48 Impacted cerumen of bilateral ears 0351501692884 108 Active 2021 Not Available [facility] 3 08:23:48 Sensorineu ral hearing loss of bilateral ears 087438400 Active 2021 Not Available [facility] 3 08:23:48 Liver enzymes level above reference range 834507563 Active 2022 Not Available [facility] 3 08:23:48 Hypothyroi dism 65125916 Active 2022 Not Available [facility] 3 08:23:48 Prediabete s 676941630 Active 2022 Not Available [facility] 3 08:23:48 Hyperlipid emia 64461115 Active 2022 Not Available [facility] 3 08:23:48 Malignant essential hypertensi on 08404698 Active 2022 Not Available [facility] 3 08:23:48 Soft systolic murmur 810622508 Active 2022 Not Available [facility] 3 08:23:48 Obesity 430040946 Active 2022 Not Available [facility] 3 08:23:48 Polyp of gallbladde r 464373013 Active 2022 Not Available [facility] 3 08:23:48 Upper respirator y infection 85112712 Active 2022 [facility] 10:50:05 Problem Notes None recorded. Procedures Surgical History Date Name Laterality Status Provider Name and Address Organization Details Recorded Time Meniscal trnspl knee w/scpe completed Not Available [facility] 06/08/2022 04:42:30 Appendectomy completed Not Available [facility] 06/08/2022 04:42:30 Hysterectomy, Partial completed Keren Multani MA [facility] 10/12/2022 14:02:14 procedure on urethra completed Keren Multani MA [facility] 10/12/2022 14:02:41 operation on urinary bladder completed Keren Multani MA [facility] 10/12/2022 14:02:52 Imaging Results None recorded. Procedure Notes None recorded. Medical Equipment None Reported. Allergies No known drug allergies Medications Name Sig Start Date Stop Date Status Note LastModified by Organization Details LastModified Time azithromyci n 250 mg tablet TAKE 2 TABLETS BY MOUTH TODAY, THEN TAKE 1 TABLET DAILY FOR 4 DAYS DIRECTED active Not Available Not Available No t Available lisinopril 20 mg tablet TAKE 1 TABLET BY MOUTH EVERY DAY active Not Available Not Available No t Available tramadol 50 mg tablet TAKE 1 TABLET BY MOUTH EVERY 6 HOURS NEEDED FOR PAIN 10/12 completed Not Available Not Available Not Available levothyroxi ne 75 mcg tablet TAKE 1 TABLET BY MOUTH EVERY DAY active Not Available Not Available No t Available oxycodone-a cetaminophe n 5 mg-325 mg tablet 0.5 - 1 TABLET ORALLY EVERY 6 HOURS NEEDED FOR PAIN active Not Available Not Available No t Available docusate sodium 100 mg capsule TAKE 1 CAPSULE BY MOUTH TWICE A DAY 10/12 completed Not Available Not Available Not Available ibuprofen 600 mg tablet 600 MG ORALLY EVERY 6 HOURS NEEDED FOR PAIN active Not Available Not Available No t Available methylpredn isolone 4 mg tablets in a dose pack TAKE 1 DOSE PACK BY MOUTH DIRECTED active Not Available Not Available No t Available albuterol sulfate HFA 90 mcg/actuati on aerosol inhaler INHALE 2 PUFFS 4 TIMES A DAY NEEDED FOR SHORTNESS OF BREATH OR FOR WHEEZE active Not Available Not Available No t Available Afluria Qd 2018- (36 mos up)(PF)60 mcg (15 mcg x4)/0.5 mL IM syringe active Not Available Not Available N ot Available Vitals Date Recorded Body mass index (BMI) Body height Body temperature Body weight Provider Name and Address Organization Details Last Updated DateTime 06/22/2021 40 kg/m2 152.4 cm 97.7 [degF] 15689.72 g Not Available [facility] 06/08/2022 04:50:03 Date Recorded Body mass index (BMI) Body height Oxygen saturation Oxygen saturation in Arterial blood by Pulse oximetry Heart rate Body temperature Body weight Systolic And Diastolic Provider Name and Address Organization Details Last Updated DateTime 2 39.1 kg/m2 152.4 cm 98 % 98 % 82 /min 97.8 [degF] 85740.4 7 g 122/76 mm[Hg] Not Available [facility] 04:50:01 Date Recorded Body height Body mass index (BMI) Body weight Body temperature Heart rate Oxygen saturation Oxygen saturation in Arterial blood by Pulse oximetry Systolic And Diastolic Provider Name and Address Organization Details Last Updated DateTime 3 152.4 cm 38.5 kg/m2 43013.7 g 98.4 [degF] 64 /min 98 % 98 % 128/76 mm[Hg] Keren Multani MA [facility] [employer] [facility] 3 14:04:15 Date Recorded Body height Provider Name an d Address Organization Details Last Updated DateTime 11/11/2021 152.4 cm Not Available [facility] 3 04:50:02 Date Recorded Body mass index (BMI) Body height Oxygen saturation Oxygen saturation in Arterial blood by Pulse oximetry Heart rate Body temperature Body weight Systolic And Diastolic Provider Name and Address Organization Details Last Updated DateTime 2 37.5 kg/m2 152.4 cm 98 % 98 % 78 /min 97.8 [degF] 79638.7 4 g 126/82 mm[Hg] Not Available [facility] 3 04:50:01 Social History Question Answer Notes LastModified by Organizat ion Details LastModified Time Tobacco Smoking Status Never Smoker PARISA Dial, [facility] [employer] [facility] 10/12/2022 13:57:13 What Is Your Level Of Caffeine Consumption? None [id number] Information not available 06/08/2022 How Much Tobacco Do You Chew? None [id number] Information not available 06/08/2022 In The 14 Days Before Symptom Onset, Have You Had Close Contact With A Laboratory-confir med COVID-19 While That Case Was Ill? No [email or web address] Information not available 10/12/2022 In The 14 Days Before Symptom Onset, Have You Had Close Contact With A Person Who Is Under Investigation For COVID-19 While That Person Was Ill? No [email or web address] Information not available 10/12/2022 What Type Of Diet Are You Following? REGULAR [id number] Information not available 06/08/2022 What Is The Highest Grade Or Level Of School You Have Completed Or The Highest Degree You Have Received? [id number] [email or web address] Information not available 10/12/2022 Have There Been Any Changes To Your Family Or Social Situation? No [email or web address] Information no t available 10/12/2022 What Is The Fluoride Status Of Your Home? Unknown [email or web address] Information not available 10/12/2022 Are There Any Guns Present In Your Home? No [email or web address] Information not available 10/12/2022 Do You Use Insect Repellent Routinely? No [email or web address] Information not available 10/12/2022 Where Do You Live? SingleLevelHouse [email or web address] Information not available 10/12/2022 What Was The Date Of Your Most Recent Tobacco Screening? 10/12/2022 [email or web address] Information not available 10/12/2022 Do You Have Any Pets? Yes [email or web address] Information not available 10/12/2022 What Is Your Relationship Status? MIGRATION.[id number] Information not available 06/08/2022 Do You Have Smoke And Carbon Monoxide Detectors In Your Home? Yes [email or web address] Information not available 10/12/2022 Are You Passively Exposed To Smoke? No [email or web address] Information no t available 10/12/2022 Are There Any Smokers In Your House? No [email or web address] Information not available 10/12/2022 How Much Tobacco Do You Smoke? No [id number] Information not available 06/08/2022 Do You Use Sunscreen Routinely? Yes [email or web address] Information not available 10/12/2022 How Many Years Have You Smoked Tobacco? 0 Information not available 10/12/2022 Have You Recently Traveled Abroad? No Information not available 10/12/2022 Do You Have Any Dietary Restrictions? No [email or web address] Information not available 10/12/2022 Sex: Unknown Functional Status Question Answer Note LastModified by Organizat ion Details LastModified Time Do you use any illicit or recreational drugs? No [email or web address] Information not available 10/12/2022 What is your level of alcohol consumption? Occasional [id number] Information not available 06/08/2022 Do you or have you ever used smokeless tobacco? 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 Never used electronic cigarettes [email or web address] Information not available 10/12/2022 What is your exercise level? Occasional [id number] Information not available 06/08/2022 Mental Status Question Answer Note LastModified by Organization D etails LastModified Time Do you feel stressed (tense, restless, nervous, or anxious, or unable to sleep at night)? [id number] [email or web address] Information not available 10/12/2022 Family History Relationship Description Onset Age of this Age Resolved Age Notes LastModified by Organization Details LastModified Time Father Hypertensive disorder [id number] Not available 06/08/2022 04:42:37 Father Heart disease [id number] Not available 06/08/2022 04:42:37 Brother Hypertensive disorder [id number] Not available 06/08/2022 04:42:37 Medical History Condition Response NERVE DISEASE N BLINDNESS N RHEUMATIC FEVER N KIDNEY STONES N BLADDER PROBLEMS N MRSA N OTHER # 1 N POLIO N LUNG DISEASE/DISORDER N RADIATION / CHEMOTHERAPY N COPD N Other # 2 N BLOOD DISEASES N EAR OR HEARING PROBLEMS N MUMPS N DEPRESSION (INCLUDING POST ) N BOWEL PROBLEMS N STROKE/TIA N ULCERS N BENIGN PROSTATIC HYPERPLASIA N MEASLES N MYOCARDIAL INFARCTION N OBESITY N GERD/NAUSEA N ANEURYSM N URINARY/BLADDER/KIDNEY PROBLEMS N CORONARY ARTERY DISEASE (CAD) N ADDICTION CONCERNS N Impotence N ENDOMETRIOSIS N USE OF BLOOD THINNERS N SKIN PROBLEMS N GASTROINTESTINAL DISORDER N PARATHYROID DISEASE N PERIPHERAL VASCULAR DISEASE N MUSCLE,JOINT OR BONE PROBLEMS N GASTROINTESTINAL BLEEDING N BLOOD CLOTS N ASTHMA N CATARACTS N ERECTILE DYSFUNCTION N VARICOSITIES N GI PROBLEMS N Low Testosterone N INFERTILITY N AIDS/HIV N CHEMOTHERAPY / RADIATION N LIVER DISEASE N MALE HYPOGONADISM N HYPERTENSION Y Deficiency N TOURETTE'S N ANXIETY DISORDER N BLOOD TRANSFUSION N ANEMIA/BLOOD DISORDER N CHRONIC EAR INFECTIONS N BRONCHITIS Y TUBERCULOSIS N GLAUCOMA N FOOT PROBLEM N DIVERTICULITIS N SLEEP APNEA N CHICKENPOX N INFECTIOUS DISEASE N PROSTATE N HEART ARRHYTHMIA N INSOMNIA N HIGH CHOLESTEROL / HYPERLIPIDEMIA N EYE PROBLEMS N HYPERTHYROIDISM N EDEMA N CHRONIC PAIN SYNDROME N HYPOTHYROIDISM N CAROTID BLOCKAGE N CONSTIPATION N BACK / NECK PROBLEMS N HAVE YOU BEEN HOSPITALIZED OR SEEN IN [facility] ER IN THE PAST YEAR ? N ATHEROSCLEROSIS N BREAST PROBLEMS N DIALYSIS N ECZEMA N HISTORY WITH COMPLICATIONS WITH ANESTHES IA ? Y OSTEOPOROSIS N ARTHRITIS N APPENDICITIS N DIABETES, TYPE N BAD TEETH N ENT N SEASONAL ALLERGIES Y HEARTBURN / REFLUX N AUTISM SPECTRUM DISORDER (ASD) N HEPATITIS / LIVER DISEASE N GOUT N SLEEP DISORDER N ALZHEIMER'S DISEASE N Brain Problems N DEMENTIA N HERPES N SEIZURES/EPILEPSY N HEADACHES/MIGRAINES Y VASCULAR DISEASE N PACEMAKER N Blood Disorder N DIZZINESS N HEART DISEASE/HEART PROBLEMS N KIDNEY DISEASE N MULTIPLE SCLEROSIS N CANCER: SPECIFY N CARDIAC ARRHYTHMIA N ATRIAL FIBRILLATION N Gall Stones N PULMONARY EMBOLISM N AUTOIMMUNE DISEASE N Gynecological HistoryNo gynecological history recorded. Obstetrics History GPAL:G 0 P 0 0 0 0 Immunizations Vaccine Type Date Status Note Provider Nam e and Address Organization Details Recorded Time influenza, unspecified formulation 3 completed Keren Multani, PIERCE bello, [place] [facility] 03/06/2023 09:44:54 COVID-19, mRNA, LNP-S, PF, 30 mcg/0.3 mL dose 1 completed Not Available [facility] 10/28/2022 08:23:48 COVID-19, mRNA, LNP-S, PF, 30 mcg/0.3 mL dose 1 completed Not Available [facility] 10/28/2022 08:23:48 Past Encounters Encounter ID Performer Location Encounter Start Date Encounter Closed Date Diagnosis/Indication Diagnosis SNOMED-CT Code Diagnosis ICD10 Code Diagnosis IMO Codes Diagnosis Note [id number] Myranda cail MD [facility] Internal Med Armen lljennifer [address] [place] [address] [place] [address] 08/12/2020 00:00:00 08/12/2020 17:30:51 [id number] Miles Hanson MD [facility]_[place] [address] [address] 08/24/2020 00:00:00 08/24/2020 17:00:49 [id number] Myranda cali MD [facility] Internal Med Eddy lljennifer [address] [place] [address] [place] [address] 02/17/2021 00:00:00 02/17/2021 16:57:14 [id number] [facility] [place] [address] [place] [address] 06/22/2021 00:00:00 06/22/2021 14:43:41 [id number] Myranda cali MD [facility] Eddy jennifer [address] [facility] [place] [address] 10/06/2021 00:00:00 10/06/2021 16:24:05 [id number] Miles Hanson MD [facility] Birgit Gillespie [address] [place] [address] 11/11/2021 00:00:00 11/11/2021 14:26:16 [id number] Myranda cali MD [facility] Internal Med Armen nathan [address] [place] [address] [place] [address] 04/06/2022 00:00:00 04/06/2022 15:22:22 [id number] Myranda cali MD [facility] Internal Med Eddy lljennifer [address] [place] [address] [place] [address] 10/12/2022 13:55:12 10/12/2022 14:21:19 Adult health examination 027178859 Z00.01 Hypothyroidism 45915175 E03.9 on levothyrox ine Prediabetes 645502927 R7 3.03 no meds, working on diet/exerc ise Hyperlipidemia 84922502 E78.5 no meds, continue diet/exerc ise Essential hypertension 31863137 I10 on lisinopril Soft systolic murmur 248 325452 R01.1 not appreciate d on exam today, but previously she had undiagnose d hypothyroi dismhas order for echo, has declined cardiology referral, she now does not want to get the echo Obesity 201653565 E66.9 recommend healthy, well balanced mealsfocus on lean meats, fresh vegetables , fresh fruits, whole grainsredu ce fast/proce ssed foods or eating out to no more than 1-2 times per weekaim to get 30 min of exercise most days of the week- walking is a great choicealso recommend resistance training 2-3 times per week Liver enzy mes level above reference range 171259219 R74.8 has orders for liver u/s and repeat labsstress ed the importance of getting these done Screening mammography 24 648735 Z12.31 Screening for malignant neoplasm of colon 449180768 Z12.11 Pt refuses screening colonoscop y but agrees to Cologuard. All risks explained to patient, including that Cologuard may miss 8% of cancers. Depression screening 171 452427 Z13.31 Health Concerns Section Related Observation LastModified by Organization Detai ls LastModified Time None Recorded Concern Status LastModified by Organization Details LastModified Time None Recorded Advance Directives Directive None Recorded Payers Insurance Date Sequence Insurance Name Policy Number Policy Covarrubias Covered Member ID Covarrubias Member ID Guarantor Name 04/10/2023 1 [facility] [facility] [id number] F Randellchocovelma Chetan Priscilla [id number] Shirin Priscilla Notes Date Note Type Note Provider Name and Address Organization Details Recorded Time 10/12/2022 text/html Shirin presents today for follow up, she is due for her annual wellness exam. Her liver enzymes were quite high and her last labs. We mailed her orders for repeat lab testing which she is due next week and a liver ultrasound. She has not scheduled her liver ultrasound yet. She tells me she is asymptomatic with this. She denies any right upper quadrant pain or nausea or vomiting after eating. She has not been sick with any viral illnesses recently. She does not drink alcohol. Her blood pressures been well controlled on her current dose of meds. She did not get her mammogram done so will get that reordered for her. She is due for colon screening. You Vaughn, [employer]GRAM [employer]NAGER[employer] [address] [facility], [place] [address], [place], [address], [place] [facility] [employer] 10/12/2022 14:45:31 OBGyn Episode No OBEpisode recorded.
== END 2025-01-28 14:45 | disposition home or self-care (01) ==
PROVIDERS: PCP Physician Assistant; Visit Provider Physician Assistant
DX: Z12.31 Encounter for screening mammogram for malignant neoplasm of breast (principal); R92.8 Other abnormal and inconclusive findings on diagnostic imaging of breast
CPT/HCPCS: 77063; 77067